=== PATIENT | male | born 1950 | race Caucasian/White ===

== ENCOUNTER 2024-05-01 12:43 | Observation (INO) ==
--- NOTE | 2024-03-28 13:45 | PAT Medication Instructions ---
Medication Instructions Date of Service March 28, 2024 Home Medications Saccharomyces boulardii 250 mg capsule (Florastor) 250 mg PO QAM albuterol sulfate 1.25 mg/3 mL solution for nebulization 1.25 mg inhalation QID PRN sob albuterol sulfate 90 mcg/actuation aerosol inhaler 1 inh inhalation QID PRN sob certolizumab pegol 400 mg/2 mL (200 mg/mL x2) subcutaneous syringe kit (Cimzia) 400 mg subcut Q4WK diltiazem HCl 180 mg capsule,24 hr,extended release 180 mg PO QAM ezetimibe 10 mg tablet 10 mg PO HS famotidine 20 mg tablet 20 mg PO DAILY PRN Heartburn finasteride 5 mg tablet 5 mg PO HS fluticasone fur. 100 mcg-umeclid 62.5 mcg-vilant 25 mcg inhalat.powder (Trelegy Ellipta) 1 inh inhalation QAM folic acid 1 mg tablet 1 mg PO QAM furosemide 20 mg tablet 20 mg PO QAM losartan 50 mg tablet 50 mg PO QAM magnesium 200 mg tablet 400 mg PO QAM methotrexate sodium 25 mg/mL injection solution 20 mg IM WK Rheumatoid Arthritis xsqxfviifeob-mvuqjoob-rbiqtt tablet (Multivitamin 50 Plus tablet) 1 tab PO QAM prednisone 5 mg tablet 5 mg PO QAM rosuvastatin 40 mg tablet 40 mg PO QAM tamsulosin 0.4 mg capsule 0.8 mg PO HS DO NOT take the morning of surgery Saccharomyces boulardii 250 mg capsule (Florastor) 250 mg PO QAM folic acid 1 mg tablet 1 mg PO QAM furosemide 20 mg tablet 20 mg PO QAM losartan 50 mg tablet 50 mg PO QAM magnesium 200 mg tablet 400 mg PO QAM jiuveiwchzfr-ulnbxhpx-psmpek tablet (Multivitamin 50 Plus tablet) 1 tab PO QAM Take morning of surgery With a small sip of water, OTHERWISE NOTHING TO EAT OR DRINK AFTER MIDNIGHT: albuterol sulfate 1.25 mg/3 mL solution for nebulization 1.25 mg inhalation QID PRN sob (if needed) albuterol sulfate 90 mcg/actuation aerosol inhaler 1 inh inhalation QID PRN sob (use if needed; please bring rescue inhaler with you to hospital day of surgery if possible) diltiazem HCl 180 mg capsule,24 hr,extended release 180 mg PO QAM famotidine 20 mg tablet 20 mg PO DAILY PRN Heartburn (if needed) fluticasone fur. 100 mcg-umeclid 62.5 mcg-vilant 25 mcg inhalat.powder (Trelegy Ellipta) 1 inh inhalation QAM prednisone 5 mg tablet 5 mg PO QAM rosuvastatin 40 mg tablet 40 mg PO QAM Take evening before surgery albuterol sulfate 1.25 mg/3 mL solution for nebulization 1.25 mg inhalation QID PRN sob (if needed) albuterol sulfate 90 mcg/actuation aerosol inhaler 1 inh inhalation QID PRN sob (if needed) ezetimibe 10 mg tablet 10 mg PO HS famotidine 20 mg tablet 20 mg PO DAILY PRN Heartburn (if needed) finasteride 5 mg tablet 5 mg PO HS STOP 7 days prior to surgery (if okay with prescriber) methotrexate sodium 25 mg/mL injection solution 20 mg IM WK Other Notes If you have any questions please call us at [phone] or [phone] or [phone] or [phone]
--- NOTE | 2024-04-03 11:35 | Anesthesiology Consultation ---
Date of Service April 03, 2024 Assessment & Plan (1) Encounter for pre-operative examination: - Check BSG DOS - Infectious disease screening: Per assessment on 04/03/24- No known recent infectious disease contacts or current infectious disease symptoms. - Outpatient joint assessment: Pt currently scheduled for inpatient pathway. If surgeon requests review for outpatient joint pathway, patient is not recommended candidate for outpatient joint program from anesthesia standpoint based on available information. - Cardiology visit (01/26/24): "Possible future elective left shoulder surgery.. Able to ambulate 1 flight of stairs without difficulty, developing dyspnea with 2 flights that does not require him to stop..Chronic atrial and ventricular ectopy.. SVT and VT via April 2022 ZIO monitor.. Diastolic heart failure.. Atherosclerotic calcification of the coronary arteries and aorta.. Possible future elective left shoulder replacement surgery.. No overt cardiac contraindications." - Chronic steroid use: Currently taking Prednisone 5mg daily for Rheumatoid arthritis. - Patient acceptable risk for surgery pending surgeon-ordered PCP preop evaluation ([facility]/Dr. Narcisa Sunshine, appt 04/11). Chart Review Chart Review: Patient seen in Pre Admission Testing Teaching & Discussion Pre-Anesthesia Teaching/Discussion Notes: Instructed NPO after midnight before surgery,except medications with 15 cc of water. Medication instructions provided according to the PAT guidelines. History Surgery Operation Date: 05/01/24 09:15 Proposed Procedures p Left Total Shoulder Arthroplasty Reverse - Mauri Gonzalez MD Height/Weight Height: 5 ft 5 in Weight: 82.5 kg Allergies Allergy/AdvReac Type Severity Reaction Status Date / Time adhesive Allergy Intermediate Rash, Verified 03/29/24 14:13 itchiness povidone-iodine Allergy Intermediate Rash, Verified 03/29/24 14:13 itchiness Medications Home Medications Medication Instructions Recorded Confirmed Last Taken Saccharomyces boulardii 250 mg 250 mg PO QAM 08/08/23 03/28/24 09/03/23 capsule (Florastor) albuterol sulfate 1.25 mg/3 mL 1.25 mg inhalation QID PRN sob 08/08/23 03/28/24 09/03/23 solution for nebulization albuterol sulfate 90 mcg/actuation 1 inh inhalation QID PRN sob 08/08/23 03/28/24 09/03/23 aerosol inhaler certolizumab pegol 400 mg/2 mL 400 mg subcut Q4WK 08/08/23 03/28/24 09/03/23 (200 mg/mL x2) subcutaneous syringe kit (Cimzia) diltiazem HCl 180 mg capsule,24 180 mg PO QAM 08/08/23 03/28/24 09/04/23 07:30 hr,extended release ezetimibe 10 mg tablet 10 mg PO HS 08/08/23 03/28/24 09/03/23 famotidine 20 mg tablet 20 mg PO DAILY PRN Heartburn 08/08/23 03/28/24 09/03/23 finasteride 5 mg tablet 5 mg PO HS 08/08/23 03/28/24 09/03/23 fluticasone fur. 100 mcg-umeclid 1 inh inhalation QA 08/08/23 03/28/24 09/04/23 07:30 62.5 mcg-vilant 25 mcg inhalat.powder (Trelegy Ellipta) folic acid 1 mg tablet 1 mg PO QAM 08/08/23 03/28/24 09/03/23 furosemide 20 mg tablet 20 mg PO QAM 08/08/23 03/28/24 09/03/23 losartan 50 mg tablet 50 mg PO QAM 08/08/23 03/28/24 09/04/23 07:30 magnesium 200 mg tablet 400 mg PO QAM 08/08/23 03/28/24 09/03/23 methotrexate sodium 25 mg/mL 20 mg IM WK Rheumatoid Arthritis 08/08/23 03/28/24 09/03/23 injection solution jikoeafvzvlc-odkjqeld-qukpbn 1 tab PO QAM 08/08/23 03/28/24 09/03/23 tablet (Multivitamin 50 Plus tablet) prednisone 5 mg tablet 5 mg PO QAM 08/08/23 03/28/24 09/04/23 07:30 rosuvastatin 40 mg tablet 40 mg PO QAM 08/08/23 03/28/24 09/04/23 07:30 tamsulosin 0.4 mg capsule 0.8 mg PO HS 08/08/23 03/28/24 09/03/23 Past Medical History Medical History Atherosclerosis Atherosclerosis calcification of the coronary arteries and aorta Atrial ectopy BPH (benign prostatic hyperplasia) Chronic back pain Chronic obstructive pulmonary disease Chronic steroid use Degenerative disc disease GERD (gastroesophageal reflux disease) History of SCC (squamous cell carcinoma) of skin s/p Moh's procedure 04/01/24 Hx of supraventricular tachycardia Hx SVT and VT via 04/2022 Zio monitor (per cardio records) Follows with [facility] cardio Hyperlipidemia Hypertension Interstitial lung disease Per [facility] records Obesity Pre-diabetes Rheumatoid arthritis Ventricular ectopy Exercise / Class Metabolic Activity II 4-5 Yardwork/Stairs/Walk up hill (one FS: No CP, no SOB) Past Family History Family History Other No family history of adverse response to anesthesia Past Surgical History Surgical History H/O arthroscopy of shoulder left H/O right cataract extraction H/O umbilical hernia repair History of anesthesia reaction Slow to wake History of carpal tunnel release and ulnar decompression (left) History of colonoscopy History of esophagogastroduodenoscopy (EGD) History of left cataract surgery (08/21/23) History of Mohs micrographic surgery for skin cancer History of tonsillectomy Past Anesthesia History No Family Hx of Anesthesia Complications and Other (Slow to wake) History of PONV No Hx of PONV and No Hx of Motion Sickness Social History Smoking Status: Former smoker Do You Dip or Chew Tobacco: Yes (Daily- Advised none DOS) Smoking End Date: Quit 1997 Hx Alcohol Use: Yes alcohol intake frequency: a few times a week Hx Substance Use: No substance use type: does not use Review of Systems Hx of recent Moh's procedure to scalp 04/01/24- reports healing well as expected/no issues. Patient advised to contact surgeon/PAT if not healed prior to surgery. Patient denies chest pain, shortness of breath, dyspnea on exertion, fever, chills, cough, wheezing, palpitations. Physical Exam Vital Signs BP 110/71 P 95 TEMP 97.9 SP02 95%RA RESP 16 Physical Full cervical extension range of motion. Full TMJ range of motion. TMD > 3.5 finger breaths Mallampati Score II Dentition: full upper plate, lower partial Lungs: course breath sounds Cardiac: regular rate and rhythm, no murmurs noted Spine: normal Carotid arteries: negative bruit Extremities: no LE edema Lab Results Anesthesia Preop Results Results Anesthesia Widget: WBC 8.37 K/ul (4.8-10.8) 04/03/24 Hgb 14.5 g/dl (14.0-18.0) 04/03/24 Hct 43.4 % (42.0-52.0) 04/03/24 Plt 271 K/uL (130-400) 04/03/24 Na 138 mmol/L (136-145) 04/03/24 K 4.5 mmol/L (3.5-5.1) 04/03/24 Cl 103 mmol/L (98-107) 04/03/24 CO2 29 mmol/L (21-32) 04/03/24 BUN 18 mg/dl (6-23) 04/03/24 Creat 0.76 mg/dl (0.6-1.4) 04/03/24 Glucose Level 147 mg/dl (70-99(Fasting)) H 04/03/24 PT 10.3 Seconds (9.0-12.0) 04/03/24 PTT 26 Seconds (21-31) 04/03/24 INR 0.9 (0.9-1.1) 04/03/24 Urine Color Yellow 04/03/24 Urine Appearance Clear (Clear) 04/03/24 Urine pH 6.5 (4.5-7.5) 04/03/24 Urine Specific [place] 1.016 (1.000-1.030) 04/03/24 Urine Protein Negative (Negative) 04/03/24 Urine Glucose (UA) Negative (Negative) 04/03/24 Urine Ketones Negative (Negative) 04/03/24 Urine Blood Negative (Negative) 04/03/24 Urine Nitrite Negative (Negative) 04/03/24 Urine Bilirubin Negative (Negative) 04/03/24 Urine Urobilinogen Negative (Negative) 04/03/24 Urine Leukocyte Esterase Negative (Negative) 04/03/24 Blood Type A Positive 04/03/24 Antibody Screen NEGATIVE 04/03/24 Testing Electrocardiogram Date: 05/19/23 SB with sinus arrhythmia at 56bpm. "Otherwise normal ECG" Chest X-Ray Date: 04/03/24 FINDINGS: No lines and tubes are seen. The cardiomediastinal silhouette is normal. There is atelectasis lung. No evidence of pleural effusion or pneumothorax. IMPRESSION: No acute chest disease. Echocardiogram Date: 07/08/22 LVEF 60 to 64%. Mild MR. Mildly increased concentric LV wall thickness. LV wall motion is normal. Stress Test Date: 07/08/22 Type: nuclear Lexiscan nuclear cardiac stress test negative for ischemia. Gated SPECT images reveal normal myocardial thickening and wall motion. Decreased counts noted in inferior wall that improved with stress with normal gated SPECT suggest attenuation artifact. LVEF 64%. Other Testing C-spine x-ray Date: 04/03/24 FINDINGS: Straightening of the cervical lordosis. C3-C4 and C4-C5 discogenic disease. No acute fracture or malalignment. IMPRESSION: C3-C4 and C4-C5 discogenic disease. No acute fracture or malalignment. No change in alignment on flexion or extension views.
--- NOTE | 2024-04-29 17:01 | History & Physical Report ---
Date of Service April 29, 2024 Assessment & Plan (1) Osteoarthritis of left glenohumeral joint: Plan: Chronic left shoulder pain end-stage glenohumeral osteoarthritis with failed rotator cuff repair with recurrent rotator cuff tear. Plan is to proceed with reverse total shoulder arthroplasty. (2) Rotator cuff tear, left: Rotator cuff tear extent: complete Rotator cuff tear trauma status: nontraumatic Qualified Code(s): M75.122 - Complete rotator cuff tear or rupture of left shoulder, not specified as traumatic History of Present Illness Chief Complaint: Left shoulder pain and weakness Primary Care Provider: ALBA Monsalve 73-year-old male with chronic left shoulder pain. History of prior shoulder arthroscopy. Patient has chronic pain and weakness. Patient denies headaches, sweats, fevers, chills, double vision, blurred vision, sore throat, chest pain, sob at rest but still with activity, n/v/d/c, numbness, tingling, fatigue, urinary symptoms, mood disorders. ROS positive for heart palpitations chronic cough low back pain enlarged prostate. Allergies Allergy/AdvReac Type Severity Reaction Status Date / Time adhesive Allergy Intermediate Rash, Verified 03/29/24 14:13 itchiness povidone-iodine Allergy Intermediate Rash, Verified 03/29/24 14:13 itchiness Home Medications Medication Instructions Recorded Confirmed Type Saccharomyces boulardii 250 mg 250 mg PO QAM 08/08/23 03/28/24 History capsule (Florastor) albuterol sulfate 1.25 mg/3 mL 1.25 mg inhalation QID PRN sob 08/08/23 03/28/24 History solution for nebulization albuterol sulfate 90 mcg/actuation 1 inh inhalation QID PRN sob 08/08/23 03/28/24 History aerosol inhaler certolizumab pegol 400 mg/2 mL 400 mg subcut Q4WK 08/08/23 03/28/24 History (200 mg/mL x2) subcutaneous syringe kit (Cimzia) diltiazem HCl 180 mg capsule,24 180 mg PO QAM 08/08/23 03/28/24 History hr,extended release ezetimibe 10 mg tablet 10 mg PO HS 08/08/23 03/28/24 History famotidine 20 mg tablet 20 mg PO DAILY PRN Heartburn 08/08/23 03/28/24 History finasteride 5 mg tablet 5 mg PO HS 08/08/23 03/28/24 History fluticasone fur. 100 mcg-umeclid 1 inh inhalation QA 08/08/23 03/28/24 History 62.5 mcg-vilant 25 mcg inhalat.powder (Trelegy Ellipta) folic acid 1 mg tablet 1 mg PO QAM 08/08/23 03/28/24 History furosemide 20 mg tablet 20 mg PO QAM 08/08/23 03/28/24 History losartan 50 mg tablet 50 mg PO QAM 08/08/23 03/28/24 History magnesium 200 mg tablet 400 mg PO QAM 08/08/23 03/28/24 History methotrexate sodium 25 mg/mL 20 mg IM WK Rheumatoid Arthritis 08/08/23 03/28/24 History injection solution yibmhnguvnen-eogvotzw-otgzst 1 tab PO QAM 08/08/23 03/28/24 History tablet (Multivitamin 50 Plus tablet) prednisone 5 mg tablet 5 mg PO QAM 08/08/23 03/28/24 History rosuvastatin 40 mg tablet 40 mg PO QAM 08/08/23 03/28/24 History tamsulosin 0.4 mg capsule 0.8 mg PO HS 08/08/23 03/28/24 History Past Med/Surg History Problem List (Updated 04/29/24 @ 17:00 by Mauri Gonzalez MD) Rotator cuff tear, left Osteoarthritis of left glenohumeral joint Encounter for pre-operative examination Medical History History of SCC (squamous cell carcinoma) of skin s/p Moh's procedure 04/01/24 Interstitial lung disease Per [facility] records Atherosclerosis Atherosclerosis calcification of the coronary arteries and aorta Hx of supraventricular tachycardia Hx SVT and VT via 04/2022 Zio monitor (per cardio records) Follows with [facility] Ventricular ectopy Atrial ectopy Obesity Pre-diabetes Chronic steroid use Chronic back pain Degenerative disc disease Rheumatoid arthritis BPH (benign prostatic hyperplasia) GERD (gastroesophageal reflux disease) Hyperlipidemia Hypertension Chronic obstructive pulmonary disease Surgical History History of Mohs micrographic surgery for skin cancer H/O right cataract extraction History of anesthesia reaction Slow to wake History of left cataract surgery (08/21/23) History of carpal tunnel release and ulnar decompression (left) History of esophagogastroduodenoscopy (EGD) History of colonoscopy H/O umbilical hernia repair History of tonsillectomy H/O arthroscopy of shoulder left Family History Other No family history of adverse response to anesthesia Social History Smoking Status: Former smoker Tobacco Type: Cigarettes and Smokeless Tobacco (Dip or Chew) Smoking End Date: Quit 1997; Second Hand Exposure: No; Do You Dip or Chew Tobacco: Yes (Daily- Advised none DOS); Tobacco Cessation Education Requested by Patient: No Hx Alcohol Use: Yes Hx Substance Use: No Preferred Language: Thai Communication Ability: Effective Dental Scheduler Required: No Beliefs That Will Affect Care: None Current Living Situation: Spouse Other Information That Helps Us Care for You: No Feels Safe at Home: Yes Safety Concerns: Feels Safe At This Time Assistive Devices: Denture - Upper and Glasses Review of Systems All systems reviewed & are unremarkable except as noted in HPI & below Physical Exam Constitutional: WD/WN, vitals as above Respiratory: normal respiratory effort; no respiratory distress Bilateral lung rhonchi Cardiovascular: Rate/Rhythm: regular rate and regular rhythm Musculoskeletal: Left shoulder exam with old surgical scars, abnormal rhythm, crepitation with range of motion, painful passive and active motion, 170 degrees flexion and abduction, 3+5 external rotation and abduction strength with 5+5 internal rotation strength. Neurovascular exam intact. Skin: no rashes, warm and dry Neurologic: normal touch/pain/proprioception Psychiatric: A+Ox3, euthymic affect Results & Data Diagnostic Findings Imaging demonstrates complete nwho-[id number]-asto glenohumeral joint with full- thickness tears of the supraspinatus and infraspinatus tendons with retraction and atrophy with tendinopathy subscapularis with tendinopathy biceps with ruptured biceps and atrophy of teres minor as well.
[~2024-05-01 12:43] MED LIST: BUPIVACAINE 0.5 % 5 MG/1 ML PF 10ML VIAL ONE
--- NOTE | 2024-05-01 13:02 | History & Physical Bridge Note ---
Date of Service May 01, 2024 History & Physical Bridge Note I have examined the patient, reviewed the History & Physical and in the interval since the performance of the History & Physical I have noted the following changes of clinical significance: no changes noted
[2024-05-01] MEDS: CeleBREX 200 MG CAP PO SCH (13:27)
[2024-05-01] MEDS: ACETAMINOPHEN 500 MG TAB PO SCH ×2 (13:27→20:25)
[2024-05-01] MEDS: FAMOTIDINE 20 MG TAB PO SCH (13:28)
[2024-05-01] MEDS: METOCLOPRAMIDE HCL 10 MG TABLET PO SCH (13:28)
[2024-05-01] MEDS: dexAMETHasone**PF** 10 MG/ML VIAL IV SCH (13:29)
[2024-05-01] MEDS: LACTATED RINGER'S 1,000 ML IV SCH (13:29)
[2024-05-01] MEDS: LR 60ML/HR IV SCH (13:29)
[2024-05-01] MEDS: GABAPENTIN 300 MG CAP PO SCH (13:31)
[2024-05-01] MEDS ORDERED: ePHEDrine sulfate 50 MG/ML AMP IV PRN (13:51)
[2024-05-01] MEDS ORDERED: ATROPINE SULFATE 0.1 MG/ML 10ML SYR IV PRN (13:51)
[2024-05-01] MEDS ORDERED: ONDANSETRON INJ 2 MG/ML 2 ML VIAL IV PRN ×2 (13:51→18:05)
[2024-05-01] MEDS ORDERED: PROMETHAZINE HCL 6.25 MG in SODIUM CHLORIDE 0.9% 50 ML IV PRN (13:51)
[2024-05-01] MEDS ORDERED: fentaNYL citrate PF 100 MCG/2 ML VIAL IV PRN (13:51)
[2024-05-01] MEDS ORDERED: HYDROmorphone INJ 1 MG/ML SYRINGE IV PRN (13:51)
[2024-05-01] MEDS ORDERED: NALOXONE HCL 0.4 MG/1 ML VIAL/CARP IV PRN ×2 (13:51→18:05)
[2024-05-01] MEDS ORDERED: FLUMAZENIL 0.1 MG/1 ML 10 ML VIAL IV PRN (13:51)
[2024-05-01] MEDS: ALBUTEROL 0.083% NEBU SOLN 3 ML VIAL NEB STA (14:00)
[2024-05-01] MEDS: ALBUTEROL 0.083% NEBU SOLN 3 ML VIAL ONE (14:00)
[2024-05-01] MEDS ORDERED: PROPOFOL IV EMULSION 10 MG/ML 20 ML VIAL IV ONE (14:27)
[2024-05-01] MEDS ORDERED: ONDANSETRON INJ 2 MG/ML 2 ML VIAL ONE (14:27)
[2024-05-01] MEDS ORDERED: LIDOCAINE 2% 2 ML VIAL/AMP(20MG/ML) INFIL ONE (14:27)
[2024-05-01] MEDS ORDERED: ROCURONIUM BROMIDE 10 MG/ML 5 ML VIAL IV ONE ×2 (14:27→15:35)
[2024-05-01] MEDS ORDERED: MIDAZOLAM HCL 1 MG/ML 2ML VIAL ONE (14:27)
[2024-05-01] MEDS ORDERED: fentaNYL citrate PF 100 MCG/2 ML VIAL ONE ×2 (14:27→16:52)
[2024-05-01] MEDS: TRANEXAMIC ACID 1,000 MG **IV Pre-op IV SCH (14:33)
[2024-05-01] MEDS: ceFAZolin 2000MG 2,000 MG/15 ML SYR IV SCH ×2 (14:57→22:43)
[2024-05-01] MEDS: TRANEXAMIC ACID 1,000 MG **IV Intra-op IV SCH (16:45)
[2024-05-01] MEDS ORDERED: SUGAMMADEX SODIUM 200 MG/2 ML VIAL IV ONE (16:50)
--- NOTE | 2024-05-01 17:13 | Operative Report ---
Post Operative Report Pre & Post Diagnosis Operation Date: 05/01/24 15:00 Pre-Op Diagnosis: 1. Osteoarthritis of left glenohumeral joint, 2. Left chronic rotator cuff tear with rotator cuff arthropathy 3. Proximal biceps rupture Post-Op Diagnosis: 1. Osteoarthritis of left glenohumeral joint, 2. Left Rotator cuff tear with rotator cuff arthropathy 3. Proximal biceps rupture I identified the patient and participated in the time-out.: Yes Procedure Operation Date: 05/01/24 15:00 Actual Procedures p Left Reverse Total Shoulder Arthroplasty(Left) - Mauri Gonzalez MD Surgeon Mauri Gonzalez MD [employer] Supervisor Issa BOOKER Estimated Blood Loss 100 Findings Consistent with Post-Op Diagnosis Specimens Humeral head Drains 2 Hemovac Anesthesia Type General Regional Complications none Disposition Disposition: Recovery Room Indications 73 male chronic left shoulder pain with end-stage glenohumeral osteoarthritis [id number] with grade 4 [place] rotator cuff arthropathy with a chronic rotator cuff tear Description of Procedure The patient was taken to the operating room and anesthetized under regional block and general anesthetic. The patient was positioned on the operating table in a 30 beach chair position with a towel roll under the medial border of the left scapula. The arm was draped free to be able to manipulate the shoulder as needed. The left upper extremity was prepped and draped in usual sterile fashion. Exam demonstrated 150 degrees forward flexion 100 degrees abduction and 40 degrees external rotation. An anterior deltopectoral approach was performed. A longitudinal incision was made in the deltopectoral interval. The skin was incised sharply. Subcutaneous flaps were elevated off the fascia. The cephalic vein was diminutive and dissected out and retracted medial with pectoralis. The clavipectoral fascia was divided at the lateral margin of the conjoined tendon and extended up to the CA ligament. The following findings were noted: The biceps tendon was ruptured proximally and scarred in bicipital groove. The subscapularis was intact. The anterior rotator interval and anterior supraspinatus tendon was intact but the infraspinatus had a chronic retracted tear and the teres minor was still intact. Humeral head was grade 4 exposed bone. The upper centimeter of the pectoralis was released for inferior exposure. A self-retaining retractor was placed. The biceps tendon was maintained in the groove and dissection performed adjacent to it. The subscapular muscle fibers were split longitudinally at the level of the circumflex vessels. The circumflex vessels were identified and tied off with silk ties and divided laterally. A Kitner elevator was used to free up the inferior fibers of the subscapularis off of the capsule. The axillary nerve was identified with a tug test and protected with a blunt Omer retractor between the nerve and the capsule. The subscapularis tendon was then taken down off of the lesser tuberosity subperiosteally, a Vicryl traction suture was placed and a subperiosteal dissection was performed along the neck of the humerus as the arm was gradually externally rotated exposing the humeral head. I did release the remnants of the supraspinatus back to meet the infraspinatus tendon tear and resected some of the supraspinatus tissue with tendinopathy superiorly. The humeral head findings demonstrated eburnated bone on the good portion of the humeral head and inferior osteophytes from anterior to posterior. retractors were readjusted and the inferior osteophytes were all resected using an artist chisel and rongeur. A Oates elevator was used to assist in releasing the capsule of the neck of the humerus. The capsule was divided with Gray scissors down to the glenoid released off the anterior glenoid and the rotator interval was released to meet the capsular release and a 360 release of the subscapularis was accomplished. A Fukuda retractor was placed into the joint retracting the humeral head posterior. Glenoid findings demonstrated only a small crescent of cartilage remaining on the anteriormost aspect of the glenoid with eburnated bone with mostly concentric type wear pattern. The labrum and biceps tendon was resected. an anterior-inferior and posterior inferior capsular release were performed with electrocautery and a Oates elevator on bone with the axillary nerve protected inferiorly by the retractor. Attention was then taken to the humeral preparation. The cutting guide was placed into the humeral head. It was positioned at 20 of retroversion. Oscillating saw was used to resect the humeral head giving the cut above the level of the posterior rotator cuff insertion site. The humerus was then prepared for the stem. I used the ascend flex stem from [employer]. The sizing broaches were used followed by trial broaches up to a size 5B Long which had the appropriate fit and fill. The appropriate sized cut protector was placed. The humerus was then retracted posterior to the glenoid. The glenoid was sized for a 29 baseplate. The guide for the baseplate was positioned in a 10 inferior tilt and the central drill hole was made. The reamer for the 29 baseplate was used. The central drill was widened for the peg. The aequalis hydroxyapatite coated standard post baseplate was impacted into position. Before fully seating the implant I did place him a cancellous bone from the humeral head underneath the implant to enhance contact with the glenoid. The base plate was transfixed with superior and inferior locking screws and anterior and posterior compression screws with stable fixation. The fan reamer was used for the 42 millimeter glenoid sphere. After irrigation the 42 mm centered glenoid sphere was impacted onto the baseplate and the security screw was tightened. Attention was taken back to the humerus. The cut protector was removed and the +0 high offset humeral tray trial was ass embled to the trial stem rotated appropriately to get bony coverage and then screwed in position. A trial reduction was performed. A +6/ 42 reversed trial insert demonstrated good stability and no shuck. The trials were removed. 3 drill holes are made into the harder bone in the bicipital groove area and 3 #5 FiberWire sutures were placed transosseously. The canal was irrigated with antibiotic solution with bacitracin. The final component was assembled. The final component was ascend flex stem assemble 2+0 high offset tray with a +6/42 mm reversed polyethylene insert. This was then impacted into the humerus with a tight press-fit. It was reduced to the glenoid sphere. Stability was verified. Subscapularis was repaired with the #5 FiberWire sutures using Thomas-Blu suture technique. Lateral row soft tissue repair was performed with #2 FiberWire [id number] sutures. The pectoralis was repaired with #2 FiberWire [id number]-[id number]-clexd sutures . The arm was taken through a range of motion which demonstrated 150 degrees forward flexion 100 degrees abduction 70 degrees external rotation. The implant was stable through the range of motion tested. The wound was copiously irrigated. Xperience irrigation was used. 2 Hemovac drains were placed. The deltopectoral interval was closed with [id number]-kn-[id number] #1 Vicryl sutures. The subcutaneous tissues were closed with 2-0 Vicryl sutures. The skin was closed with surgical tiffany. Sterile dressings were applied and a shoulder immobilizer. JHONY Avila, my physician administrative personal assistant acted as therapy assistant throughout the procedure .He performed functions including patient positioning, arm positioning, prepping and draping, soft tissue retraction, instrument management, suture management and performed the subcutaneous and skin closure and will participate in the postoperative care of the patient. I attest to the content of the Intraoperative Record and any orders documented therein. Any exceptions are noted below.
--- NOTE | 2024-05-01 17:47 | XRay Report ---
EXAM: Radiographs of the Left Shoulder Complete 2 Views INDICATION: Arthroplasty. TECHNIQUE: 2 views of the left shoulder. COMPARISON: No relevant prior studies available. FINDINGS: Bones/joints: Reverse shoulder arthroplasty components well-seated and intact. No fracture or dislocation. Soft tissues: There is expected postoperative swelling in the operative bed. There are 2 surgical drains projecting over the shoulder. Lungs and pleural spaces: There is mild atelectasis in the lung bases. IMPRESSION: 1. Satisfactory appearance of left shoulder arthroplasty. 2. There is mild atelectasis in the lung bases. ACT 112: Negative or not required by law. Electronically signed by Cheri Leyva 05-01-2024 5:47 PM
--- NOTE | 2024-05-01 17:56 | Anesthesiology Progress Note ---
Date of Service May 01, 2024 Anesthesia Post Procedure Vital Signs Vital Signs: Temp Pulse Pulse Resp BP Pulse Ox O2 Del Method 05/01/24 17:50 75 16 116/69 94 Nasal Cannula 05/01/24 17:40 75 15 109/65 94 Oxymask 05/01/24 17:30 76 17 110/69 92 Oxymask 05/01/24 17:22 36.4 C L 75 17 136/75 92 Oxymask 05/01/24 14:00 67 18 93 Room Air 05/01/24 13:22 Room Air 05/01/24 13:10 36.8 C 74 20 138/73 94 Room Air O2 Flow Rate 05/01/24 17:50 4 05/01/24 17:40 5 05/01/24 17:30 10 05/01/24 17:22 10 05/01/24 14:00 05/01/24 13:22 05/01/24 13:10 Transfer of Care Handoff Completed per policy Notes Mental Status: alert / awake / arousable Patient Amnestic to Procedure: Yes Nausea / Vomiting: adequately controlled Pain: adequately controlled Airway Patency, RR, SpO2: stable & adequate BP & HR: stable & adequate Hydration State: stable & adequate Anesthetic Complications: no major complications apparent and Pt Satisfied with anesthetic care
[2024-05-01] MEDS ORDERED: MAGNESIUM HYDROXIDE SUSP 30 ML UDC PO PRN (18:05)
[2024-05-01] MEDS ORDERED: ALUMINUM/MAGNESIUM SUSP 30 ML UDC PO PRN (18:05)
[2024-05-01] MEDS ORDERED: ALBUTEROL HFA 8 GM INHALER INH PRN (18:05)
[2024-05-01] MEDS ORDERED: ALBUTEROL 0.5% NEB SOLN 2.5 MG/0.5 ML VIAL INH PRN (18:05)
[2024-05-01] MEDS ORDERED: metHOTREXate sodium 50 MG/2 ML MDV VIAL IM SCH (18:05)
[2024-05-01] MEDS ORDERED: bisacodyL 10 MG SUPP PR PRN (18:05)
[2024-05-01] MEDS ORDERED: KETOROLAC TROMETHAMINE 15 MG/ML VIAL IV PRN (18:05)
[2024-05-01] MEDS ORDERED: HYDROmorphone INJ 0.5 MG/0.5 ML SYR IV PRN (18:05)
[2024-05-01] MEDS ORDERED: METOCLOPRAMIDE HCL INJ 5 MG/ML 2 ML VIAL IV PRN (18:05)
[2024-05-01] MEDS ORDERED: diphenhydrAMINE Capsule 25 MG CAP PO PRN (18:05)
[2024-05-01] MEDS ORDERED: oxyCODONE HCL IR 5 MG TAB (IMMEDIATE RELEASE) PO PRN (18:05)
[2024-05-01] MEDS ORDERED: FAMOTIDINE 20 MG TAB PO PRN (18:05)
[2024-05-01] MEDS: ORTHO JOINT ANESTHETIC ONE (18:06)
--- NOTE | 2024-05-01 18:54 | Hospitalist Consultation ---
Date of Consultation May 01, 2024 Assessment & Plan (1) Rotator cuff tear, left: - Post-op day 0 left reverse total shoulder - Pain management per primary team: Tylenol 1000mg q8, Dilaudid 0.5mg q4 prn, Toradol 15mg q6 prn, oxycodone 5mg q4 prn - Benadryl prn for itching held -> delirium risk - Asp 81mg BID per primary team (2) Chronic obstructive pulmonary disease: - follows with pulm - currently on 3L NC, has been able to wean down from 10L Oxymax this post-op - some wheezing in exam, will add scheduled DuoNebs and would plan to transition to prn once able to wean oxygen requirement - if trouble weaning O2 requirement consider CXR - continue home inhalers-> albuterol prn, Trelegy (3) Hypertension: - blood pressures 100s/70s -> held home losartan- due qAM, would restart in the morning if blood pressure can tolerate (4) Hyperlipidemia: - continue Zetia, statin (5) GERD (gastroesophageal reflux disease): - continue pepcid (6) BPH (benign prostatic hyperplasia): - continue finasteride, tamsulosin (7) Rheumatoid arthritis: - continue with home medications-> methotrexate, prednisone - on Cimzia- did not take in April prior to surgery - continue with home celebrex (8) Atrial ectopy: - continue cardizem (9) (HFpEF) heart failure with preserved ejection fraction: - continue home lasix Supervising Physician Co-Signing Physician Notes Patient seen and examined, chart reviewed, case discussed with Samira Isaacs, and I agree with the assessment and plan as above except as otherwise noted above. All labs and images reviewed Doing well at bedside. Eating dinner. Nerve block of Left arm has not yet worn off, fingers still feel numb. Boxing Promoter strength 5/5. Cap refill brisk. Drain with serosanguinous output. No concerns from pt at bedside. +wheezing. Agree w/ duonebs and trend. If persistent hypoxia in AM obtain CXR w/ risk of phrenic nerve involvement from block, suspect mostly from COPD. Agree w/ management as above. History of Present Illness Attending Physician: Mauri Gonzalez MD History of Present Illness 73 year male with a past medical history of COPD, HFpEF, RA on chronic steroids, Chronic atrial and ventricular ectopy, GERD, HLD, BPH that is post-op day 0 left reverse total shoulder arthroplasty. Seen post-op at request of surgeon for medical management. was at bedside. Noted to be on 3L NC, denies dyspnea/chest pain. Notes history of COPD, but denies recent exacerbation. Denies URI symptoms- cough, congestion prior to surgery. Pain is well controlled at present. No acute complaints. Allergies Allergy/AdvReac Type Severity Reaction Status Date / Time adhesive Allergy Intermediate Rash, Verified 05/01/24 13:06 itchiness povidone-iodine Allergy Intermediate Rash, Verified 05/01/24 13:06 itchiness Home Medications Medication Instructions Recorded Confirmed Type Saccharomyces boulardii 250 mg 250 mg PO QAM 08/08/23 05/01/24 History capsule (Florastor) albuterol sulfate 1.25 mg/3 mL 1.25 mg inhalation QID PRN sob 08/08/23 05/01/24 History solution for nebulization albuterol sulfate 90 mcg/actuation 1 inh inhalation QID PRN sob 08/08/23 05/01/24 History aerosol inhaler certolizumab pegol 400 mg/2 mL 400 mg subcut Q4WK 08/08/23 05/01/24 History (200 mg/mL x2) subcutaneous syringe kit (Cimzia) diltiazem HCl 180 mg capsule,24 180 mg PO QAM 08/08/23 05/01/24 History hr,extended release ezetimibe 10 mg tablet 10 mg PO HS 08/08/23 05/01/24 History famotidine 20 mg tablet 20 mg PO DAILY PRN Heartburn 08/08/23 05/01/24 History finasteride 5 mg tablet 5 mg PO HS 08/08/23 05/01/24 History fluticasone fur. 100 mcg-umeclid 1 inh inhalation QAM 08/08/23 05/01/24 History 62.5 mcg-vilant 25 mcg inhalat.powder (Trelegy Ellipta) folic acid 1 mg tablet 1 mg PO QAM 08/08/23 05/01/24 History furosemide 20 mg tablet 20 mg PO QAM 08/08/23 05/01/24 History losartan 50 mg tablet 50 mg PO QAM 08/08/23 05/01/24 History magnesium 200 mg tablet 400 mg PO QAM 08/08/23 05/01/24 History methotrexate sodium 25 mg/mL 20 mg IM WK Rheumatoid Arthritis 08/08/23 05/01/24 History injection solution ewrjhrrajaqo-qtkhzmoo-apxxho 1 tab PO QAM 08/08/23 05/01/24 History tablet (Multivitamin 50 Plus tablet) prednisone 5 mg tablet 5 mg PO QAM 08/08/23 05/01/24 History rosuvastatin 40 mg tablet 40 mg PO QAM 08/08/23 05/01/24 History tamsulosin 0.4 mg capsule 0.8 mg PO HS 08/08/23 05/01/24 History acetaminophen 500 mg tablet 1,000 mg (2 x 500 mg) PO Q8H #90 05/01/24 Rx (Tylenol Extra Strength) tabs aspirin 81 mg tablet,delayed 81 mg PO BID #60 tabs 05/01/24 Rx release cefadroxil 500 mg capsule 500 mg PO Q12H #28 caps 05/01/24 Rx celecoxib 200 mg capsule (Celebrex) 200 mg PO Q12H #60 caps 05/01/24 Rx oxycodone 5 mg tablet 5 mg PO Q4H PRN pain #20 tabs 05/01/24 Rx Patient History Medical History History of SCC (squamous cell carcinoma) of skin s/p Moh's procedure 04/01/24 Interstitial lung disease Per S records Atherosclerosis Atherosclerosis calcification of the coronary arteries and aorta Hx of supraventricular tachycardia Hx SVT and VT via 04/2022 Zio monitor (per cardio records) Follows with [facility] cardio Ventricular ectopy Atrial ectopy Obesity Pre-diabetes Chronic steroid use Chronic back pain Degenerative disc disease Rheumatoid arthritis BPH (benign prostatic hyperplasia) GERD (gastroesophageal reflux disease) Hyperlipidemia Hypertension Chronic obstructive pulmonary disease Surgical History History of Mohs micrographic surgery for skin cancer H/O right cataract extraction History of anesthesia reaction Slow to wake History of left cataract surgery (08/21/23) History of carpal tunnel release and ulnar decompression (left) History of esophagogastroduodenoscopy (EGD) History of colonoscopy H/O umbilical hernia repair History of tonsillectomy H/O arthroscopy of shoulder left Family History Other No family history of adverse response to anesthesia Social History Smoking Status: Former smoker Tobacco Type: Cigarettes and Smokeless Tobacco (Dip or Chew) Smoking End Date: Quit 1997; Second Hand Exposure: No; Do You Dip or Chew Tobacco: Yes (Daily- Advised none DOS); Tobacco Cessation Education Requested by Patient: No Hx Alcohol Use: Yes Hx Substance Use: No Preferred Language: Korean Communication Ability: Effective Television Maintenance Man Required: No Beliefs That Will Affect Care: None Current Living Situation: Spouse Other Information That Helps Us Care for You: No Feels Safe at Home: Yes Safety Concerns: Feels Safe At This Time Assistive Devices: Denture - Upper and Glasses Review of Systems Review of Systems: As per above Physical Exam Physical Exam: Constitutional: well-appearing, no acute distress HEENT: NCAT, no conjunctival injection CV: regular rhythm, no murmur appreciated, extremities well-perfused, no LE edema Resp: +wheezing throughout, no rales/rhonchi appreciated, no increased work of breathing GI: soft, nondistended, nontender MSK: no gross deformities appreciated, left arm immobilized in sling Skin: warm, dry, no rash appreciated Neuro: alert, oriented, no focal neurologic deficit appreciated Results & Data Results & Data Vital Signs (Past 12 Hours) Vital Signs Temp Pulse Pulse Resp BP Pulse Ox O2 Del Method 05/01/24 18:31 Nasal Cannula 05/01/24 18:12 36.7 C 81 18 104/74 94 Nasal Cannula 05/01/24 17:50 75 16 116/69 94 Nasal Cannula 05/01/24 17:40 75 15 109/65 94 Oxymask 05/01/24 17:30 76 17 110/69 92 Oxymask 05/01/24 17:22 36.4 C L 75 17 136/75 92 Oxymask 05/01/24 14:00 67 18 93 Room Air 05/01/24 13:22 Room Air 05/01/24 13:10 36.8 C 74 20 138/73 94 Room Air O2 Flow Rate 05/01/24 18:31 4 05/01/24 18:12 4 05/01/24 17:50 4 05/01/24 17:40 5 05/01/24 17:30 10 05/01/24 17:22 10 05/01/24 14:00 05/01/24 13:22 05/01/24 13:10 Resident Activity Tracking Resident Involvement: Resident Care Provided Care Provided: Adult [facility] Medicine (1) Rotator cuff tear, left Rotator cuff tear extent: complete Rotator cuff tear trauma status: nontraumatic Qualified Code(s): M75.122 - Complete rotator cuff tear or rupture of left shoulder, not specified as traumatic
--- NOTE | 2024-05-01 19:26 | Billing Data ---
Date of Service May 01, 2024 Coding Level of Care Code 57425 IN/OBS CONSULT LVL 4,60M
[2024-05-01] MEDS: ALBUT/IPRATROP 3MG/0.5MG NEB 3 ML VIAL NEB STA (19:57)
--- OUTSIDE RECORDS SUMMARY | 2024-05-01 20:20 | External Medical Summary | Summary of Care ---
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 Role Phone Trip Bennett Primary Care Provider [phone] Reason for Visit * Reason Comments Mohs Surgery Pt presents today fo r Mohs surgery on R vertex scalp Encounter Details Date Type Department Care Team (Late st Contact Info) Description 04/01/2024 7:45 AM EST Office Visit [facility] [address] [place] [address] Mary Jo Quezada MD [address] [place] [id number] Squamous cell carcinoma of scalp*; Basal cell carcinoma (BCC) of parietal region of scalp; Actinic keratosis Allergies Active Allergy Reactions Criticality Noted Date Comments Adhesive Tape Rash 03/04/2016 Povidone Iodine 03/02/2012 rash Latex Other (Please comment) Medium 08/26/2016 Skin irritation documented as of this encounter (statuses as of 04/11/2024) Medications certolizumab pegol (CIMZIA) 2 X 200 MG KIT 400 mg subcutaneously every 4 weeks, PFS 1 Kit 5 10/16/19 15 Active Insulin Syringe/Needle (B-D INSULIN SYRINGE) 28G X 1/2" 1 ML MISC To use with injectable methotrexate 1 Box 3 12/06/19 15 Active Magnesium Oxide 400 MG Tablet TAKE ONE TABLET BY MOUTH ONCE DAILY 30 Tab 5 01/07/20 15 Active Respiratory Therapy Supplies (FULL KIT NEBULIZER SET) MISCIndications: COPD, moderate (HCC),COPD exacerbation (HCC),Bronchitis , complicated,Whee zing,Shortness of breath,Complicat ed bronchitis Use as directed 1 Each 04/30/19 17 Active One-A-Day Mens Oral Tablet Take 1 Tablet by mouth in the morning. Active Folic Acid 1 MG Oral TabletIndication s:Rheumatoid arthritis involving multiple sites with positive rheumatoid factor (HCC) Take 1 Tablet by mouth in the morning. 90 Tablet 4 02/28/20 23 Active Rosuvastatin Calcium 40 MG Oral Tablet (Crestor)Indicat ions:Dyslipidemi a, goal LDL below 70 Take 1 Tablet by mouth in the morning. 90 Tablet 3 04/28/19 24 Active Probiotic & Acidophilus Ex St Oral Capsule Take 1 Capsule by mouth in the morning and 1 Capsule at noon and 1 Capsule in the evening. Take with meals. Takes one in am only . Active Meclizine HCl 25 MG Oral Tablet (Antivert)Indica tions:Spell of dizziness Take 1 Tablet by mouth 3 times a day as needed for Dizziness. 30 Tablet 1 04/28/19 24 Active Albuterol Sulfate (2.5 MG/3ML) 0.083% Inhalation Nebulization Solution (Proventil)Indic ations:COPD exacerbation (HCC) USE 1 VIAL IN NEBULIZER EVERY 4 HOURS NEEDED FOR WHEEZING 75 mL 1 09/20/19 24 Active Furosemide 20 MG Oral Tablet (Lasix) Take 1 Tablet by mouth in the morning. 31 Tablet 5 10/02/19 24 Active Famotidine 20 MG Oral Tablet (Pepcid)Indicati ons:Gastroesopha geal reflux disease without esophagitis Take 1 Tablet by mouth at bedtime as needed for Heartburn. 34 Tablet 5 10/27/19 24 Active Additional Information Patient not taking.Reported on 01/26/2024 predniSONE 5 MG Oral Tablet (Deltasone)Indic ations:Rheumatoi d arthritis (HCC) Take 1 Tablet by mouth in the morning. 90 Tablet 3 12/04/19 24 Active Albuterol Sulfate HFA 108 (90 Base) MCG/ACT Inhalation Aerosol SolutionIndicati ons:COPD, moderate (HCC) Inhale 2 Puffs by mouth every 4 hours as needed for Cough or Wheezing. 18 g 1 12/04/19 24 Active Sildenafil Citrate 20 MG Oral Tablet (Revatio)Indicat ions:Erectile dysfunction, unspecified erectile dysfunction type TAKE 4 TABLETS BY MOUTH NEEDED 1 HOUR PRIOR TO SEXUAL ACTIVITY 30 Tablet 5 12/07/19 24 Active Finasteride 5 MG Oral Tablet (Proscar) Take 1 Tablet by mouth in the morning. 90 Tablet 1 01/02/20 24 Active Tamsulosin HCl 0.4 MG Oral Capsule (Flomax)Indicati ons:BPH with obstruction/lowe r urinary tract symptoms Take 1 Capsule by mouth in the morning and 1 Capsule before bedtime. TAKE 1 CAPSULE, BY MOUTH, TWO TIMES A DAY. Strength: 0.4 mg. 180 Capsule 4 01/05/20 24 Active Additional Information Patient taking differently: 0.8 mgOralDaily(AM), TAKE 1 CAPSULE, BY MOUTH, TWO TIMES A DAY.Strength: 0.4 mg, Reported on 01/26/2024 Ezetimibe 10 MG Oral Tablet (Zetia)Indicatio ns:Dyslipidemia, goal LDL below 70 Take 1 Tablet by mouth daily. 90 Tablet 3 01/26/20 24 Active Methotrexate Sodium 50 MG/2ML Injection Solution Inject 0.8ml (20mg) under the skin once a week 10 mL 5 02/07/20 24 Active Fluticasone Propionate 50 MCG/ACT Nasal Suspension (Flonase) Administer 2 Sprays into each nostril in the morning. 18.2 mL 3 02/19/20 24 Active Trelegy Ellipta 100-62.5-25 MCG/ACT Aerosol Powder Breath Activated (Fluticasone-Ume clidinium-Vilant darek) Inhale 1 Puff by mouth in the morning. 60 Blister Dosing Unit 10 02/19/20 24 Active Losartan Potassium 50 MG Oral Tablet (Cozaar)Indicati ons:HTN, goal below 140/90 Take 1 Tablet by mouth in the morning. 90 Tablet 3 03/05/20 24 Active dilTIAZem HCl ER Coated Beads 180 MG Oral Capsule Extended Release 24 Hour (Cardizem CD)Indications:P aroxysmal VT (HCC) Take 1 Capsule by mouth in the morning. 90 Capsule 3 03/05/20 24 Active Hospital, Clinic, or Other Facility Administered Medication Ordered Dose Route Frequency Start Date End Date Status certolizumab pegol (CIMZIA) inj 200 mgIndications: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 factor (HCC) 200 mg SC [id number] 10/24/2017 Active certolizumab pegol (CIMZIA) inj 200 mgIndications: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 factor (HCC) 200 mg SC [id number] 10/24/2017 Active Albuterol Sulfate (Proventil) (5 MG/ML) 0.5% *conc* inhalation solution 2.5 mgIndications:COPD (chronic obstructive pulmonary disease) with chronic bronchitis (HCC) 2.5 mg NEBULIZER PRN 02/09/2024 02/07/2025 Active documented as of this encounter (statuses as of 04/11/2024) Active Problems Problem Noted Date Diagnosed Date Paroxysmal VT 06/24/2022 ILD (interstitial lung disease) 04/25/2022 COPD, group C, by GOLD 2017 classification 03/30 Overview: Per COPD GOLD Classification Mild emphysema 11/01/2019 Family history of ischemic heart disease 019 Lumbar foraminal stenosis 11/15/2018 HNP (herniated nucleus pulposus), lumbar 019 Lumbar spine pain 10/17/2018 Ventricular ectopy 09/07/2018 Prediabetes 04/30/2018 Overview: Per Prediabetes protocol #1 BPH with obstruction/lower urinary tract symptom s 06/24/2017 Dyslipidemia 06/24/2017 Rheumatoid arthritis involvi ng multiple sites with positive rheumatoid factor 10/07/2015 HTN, goal below 140/90 09/28/2015 Overview: Per HTN Protocol Atrial ectopy 07/09/2015 Encounter for long-term (current) use of 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 08/30 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 HTN, goal below 140/80 08/05/201109/30 Overview: Per HTN Protocol COPD, severity to be determined 12/10/2007 04/14/2011 Overview (05/08/2009): Prior smoker, quit . Obstructive Dz on PFT October 2007. Symptoms improved on Foradil. Much improved on Advair 100-50 COPD, MODERATE 12/10/2007 11/28/2019 Overview (04/14/2011): Per COPD Protocol #24. Prior smoker, quit . Obstructive Dz on PFT October 2007. Symptoms improved on Foradil. Much improved on Advair 100-50 Last PFT - 2007-11-06 Major depressive disorder Overview (02/07/2017): ICD-10 update of inactive term Hyperlipidemia 06/24/2017 E.D. 06/24/2017 Esophagitis 06/24/2017 Overview (01/16/2017): ICD-10 update of inactive term documented as of this encounter (statuses as of 04/11/2024) Immunizations Name Administration Dates Next Due COVID-19 mRNA, LNP-s, No Pre serve, 2-Dose Series (Original) 03/06/2021,02/13/2021 HEP A - Hepatitis A (Adult > 18 yrs) 12/06/1999, 05/31/1999 PPD 01/21/2013 Pneumococcal Conjugate Vacc, 13 Valent (Prevnar) 07/10/2015 Pneumococcal Polysaccharide PPV23 (Pneumovax) 11/03/2017,03/02/2012 Season Influenza, Quad, PF, Adjuvanted, 65+ Yrs, IM (FLUAD) 01/31/2020 Seasonal Influenza Vac., MDV , IM, 0.5 mL (Fluzone) 03/07/2014,01/04/2013,03/02/2012 Seasonal Influenza, High Dos e, Trivalent, PF, IM (Fluzone HD) 01/26/2024 Seasonal Influenza, PF, 6 M & above, IM , (FluLaval or Fluzone) 02/23/2018,03/03/2017 Seasonal Influenza, Quadriva lent Hd (Fluzone Hd) 01/20/2023,12/17/2021,03/12/2021 Seasonal Influenza, Quadriva lent, No Preserve, IM 02/05/2016,02/13/2015 02/04/2017 Seasonal Influenza, Trivalen t, Adjuvanted, 65+ YRS, PF, (Fluad) 02/01/2019 TDAP (age 10 and older)(Boostrix) 11/03/2017 TDAP, Age 7 and older, IM (Adacel) 11/02/2007 documented as of this encounter Social History Tobacco Use Types Packs/Day Years Used Date Smoking Tobacco: Former Cigarettes 2 26 0 10/14/1972 - 10/14/1998 Cigars Smokeless Tobacco: Current Chew Comments:Pt quit smoking in 1996 - 2 +PPD in past. Still chews tobacco smoked- 3/4 can per day Alcohol Use Standard Drinks/Week Comments Yes 3 (1 standard drink = 0.6 oz pur e alcohol) weekend PHQ-2 Answer Date Recorded PHQ Adult Total Score 0 04/28/2023 Hunger Vital Sign Answer Date Recorded Within the past 12 months, y ou worried that your food would run out before you got the money to buy more. Never true 04/28/19 24 Within the past 12 months, t he food you bought just didn't last and you didn't have money to get more. Never true 04/28/2023 Childcare Answer Date Recorded Do you feel overwhelmed with taking care of a child, family member or friend? No 04/28/2023 Does your family need help f inding childcare? (Household - for ages 0-17 years) Not on file 04/28/2023 Clothing Answer Date Recorded Have you been unable to get clothing when it was really needed? No 04/28/2023 Is your family able to get c lothes or diapers when needed? (Household - for ages 0-17 years) Not on file 04/28/2023 Personal Safety Answer Date Recorded Do you feel unsafe or have concerns for your saf ety? No 04/28/2023 Do you have concerns for you r family's safety? (Household - for ages 0-17 years) Not on file 04/28/2023 Utilities Answer Date Recorded Do you have trouble paying y our heating, water, or electric bill? No 04/28/2023 Is your family able to pay t he heat, water, or electric bill? (Household - for ages 0-17 years) Not on file 04/28/2023 Does your family have access to good internet? (Household - for ages 0-17 years) Not on file 04/28/2023 Employment Status Answer Date Recorded Are you unemployed or without regular income? No 04/28/2023 Does the household have a re lar source of income? (Household - for ages 0-17 years) Not on file 04/28/2023 Social Connections Answer Date Recorded How often do you feel lonely or isolated from th ose around you? Never 04/28/2023 Financial Resource Strain Answer Date R ecorded Do you have any trouble payi ng for your medications, or do you think you might in the future? No 04/28/2023 Does your family have troubl e paying for medicine? (Household - for ages 0-17 years) Not on file 04/28/2023 Transportation Needs Answer Date Record ed READ ONLY Do you have troubl e getting a ride to medical visits or work? Never True 04/28/2023 Does your family have a hard time getting a ride to doctors visits? (Household - for ages 0-17 years) Not on file 04/28/2023 Has lack of transportation k ept you from medical appointments, meetings, work, or from getting things needed for daily living? Check all that apply. (Adult - for ages 18 years and over) Not on file 04/28/2023 Do you (or your family) have trouble finding or paying for a ride (transportation)? (Household - for ages 0-17 years) Not on file 04/28/2023 Housing Stability Answer Date Recorded Do you currently live in a s helter or have no steady place to sleep at night? No 04/28/2023 READ ONLY Do you think you a re at risk of becoming homeless? No 04/28/2023 Does your family worry about paying for your home or becoming homeless? (Household - for ages 0-17 years) Not on file 0 04/28/2023 Are you homeless or worried that you might be in the future? (Adult - for ages 18 years and over) Not on file Are you (or your family) teja eless or worried that you might be in the future? (Household - for ages 0-17 years) Not on file Food Insecurity Answer Date Recorded Do you need food for this week? No 04/28/2023 Are you able to get enough f ood for your family? (Household - for ages 0-17 years) Not on file 04/28/2023 Does your family need food t his week? (Household - for ages 0-17 years) Not on file 04/28/2023 Do you always have enough fo od for your family? 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 Not on file Not on file documented as of this encounter Last Filed Vital Signs Vital Sign Reading Time Taken Comments Blood Pressure - - Pulse - - Temperature 36.5 C (97.7 F) 04/01/2024 7:37 AM ES T Respiratory Rate - - Oxygen Saturation - - Inhaled Oxygen Concentration - - Weight - - Height - - Body Mass Index - - documented in this encounter Progress Notes * Mary Jo Quezada MD - 04/01/2024 7:45 AM EST [facility] Mohs Surgery Note (See separate transcribed operative note for further detail) History: Antonio Burt is a 73 year old patient seen for evaluation and management of the following lesion: A. Skin, right vertex scalp, shave: Invasive well-differentiated squamous cell carcinoma Other adjacent/nearby lesions noted on exam today. Patient problem list reviewed. Patient medication/allergy lists reviewed. Examination: Antonio Burt is alert, oriented and appears well and in no distress. The patient's skin is remarkable for: right vertex scalp: 2.0 x 1.1 cm pink scar/pink plaque right posterior scalp: 2.0 x 1.1 cm pink plaque Right vertex scalp, anterior: 2.1 cm x 1.5 cm pink scaly plaque Impression/Plan: well differentiated squamous cell carcinoma - right vertex scalp MMS Standard Mohs micrographic technique was utilized to treat this tumor. Microscopic examination of the specimen allowed the Mohs surgeon, whose dual role is to function as both surgeon and pathologist, to precisely identify the location of any remaining tumor or ascertain that the tissue margins were free of tumor. This process of excision of remaining tumor, mapping, and histologic exam was repeated until the tumor was excised completely. Patient identified, procedure verified, site identified and verified with the patient. Time out completed. Surgical removal of the lesion discussed with the patient (risks and benefits, including possibility of scarring, infection, bleeding, recurrence or potential for further treatment). I have specifically identified the site with the patient. I have discussed the fact that the patient will have a scar after the procedure regardless of granulation or repair with sutures. I have discussed that the repair options can range from granulation in some cases to linear or curvilinear closures. There is a risk of injury to nerves causing temporary or permanent numbness. Questions answered and verbal and written consent was obtained. 2 stage(s) Anesthetic: 0.05% lidocaine with 1:100,000 epinephrine. Repair: Primary Intermediate layered repair (see separate operative report for details) Absorbable sutures 2. Favor non-melanoma skin cancer (basal cell carcinoma vs squamous cell carcinoma) - right posterior scalp - lesion biopsied today, read in Mohs lab on frozen sections, diagnosed as nodular basal cell carcinoma, and subsequently treated with Mohs micrographic surgery Shave Biopsy of the lesion noted above to establish and confirm diagnosis. The procedure, risks, benefits, alternatives and expected outcomes were discussed with the patient and consent was obtained.Time out called. Patient identified, procedure verified, site identified and verified. Patient and staff present in agreement. Area prepped with alcohol and anesthetized with 0.5% lidocaine with epinephrine at 1:200,000 concentration. Biopsy of lesion performed. 20% AlCl and bandaging applied. Specimen sent to Mohs lab for frozen sections. Specimen # [id number] BIOPSY NUMBER/TYPE/SITE: [id number], shave biopsy, right posterior scalp . GROSS DESCRIPTION OF SPECIMEN: Received is a shaved specimen of tissue labelled corresponding to the site listed. MICROSCOPIC DESCRIPTION OF SPECIMEN: Present in the dermis are nodular aggregates of basaloid cellswith peripheral palisading. MICROSCOPIC DIAGNOSIS: Nodular basal cell carcinoma Basal cell carcinoma,right posterior scalp MMS Standard Mohs micrographic technique was utilized to treat this tumor. Microscopic examination of the specimen allowed the Mohs surgeon, whose dual role is to function as both surgeon and pathologist, to precisely identify the location of any remaining tumor or ascertain that the tissue margins were free of tumor. This process of excision of remaining tumor, mapping, and histologic exam was repeated until the tumor was excised completely. Patient identified, procedure verified, site identified and verified with the patient. Time out completed. Surgical removal of the lesion discussed with the patient (risks and benefits, including possibility of scarring, infection, recurrence or potential for further treatment). I have specifically identified the site with the patient. I have discussed the fact that the patient will have a scar after the procedure regardless of granulation or repair with sutures. I have discussed that the repair options can range from granulation in some cases to linear or curvilinear closures. There is a risk of injury to nerves causing temporary or permanent numbness. Questions answered and verbal and written consent was obtained. 3 stage(s) Anesthetic: 0.05% lidocaine with 1:100,000 epinephrine. Repair: Primary Intermediate layered repair (Incorporated into adjacent repair) (see separate operative report for details) Absorbable sutures 3. DDx includes actinic keratosis vs non-melanoma skin cancer, right vertex scalp, anterior - lesion biopsied today, read in Mohs lab on frozen sections, diagnosed as actinic keratosis, and subsequently treated with curettage Shave Biopsy of the lesion noted above to establish and confirm diagnosis. The procedure, risks, benefits, alternatives and expected outcomes were discussed with the patient and consent was obtained.Time out called. Patient identified, procedure verified, site identified and verified. Patient and staff present in agreement. Area prepped with alcohol and anesthetized with 0.5% lidocaine with epinephrine at 1:200,000 concentration. Biopsy of lesion performed. 20% AlCl and bandaging applied. Specimen sent to Mohs lab for frozen sections. Specimen # [id number] BIOPSY NUMBER/TYPE/SITE: [id number] shave biopsy, right vertex scalp, anterior. GROSS DESCRIPTION OF SPECIMEN: Received is a shaved specimen of tissue labelled corresponding to the site listed. MICROSCOPIC DESCRIPTION OF SPECIMEN: Present within the epidermis of this specimen are foci of squamous atypia. These changes do not extend into the dermis in the sections examined. MICROSCOPIC DIAGNOSIS: Actinic keratosis Curettage of the lesion . The procedure, risks, benefits, alternatives and expected outcomes were discussed with the patient and consent was obtained. Patient identified, procedure verified, site identified and verified. Confirmed immediately prior to procedure. Area prepped with alcohol and anesthetized using 0.5% lidocaine with epinephrine at 1:200,000 concentration. Curettage performed for cure. 20% AlCl and bandaging applied. Patient instructed in routine post-op care. Size of lesion: 2.1 cm Size of wound after curettage: 2.5 cm Wound care was discussed verbally, demonstrated and printed wound instructions given as well as wound care supplies. Patient instructed to call with questions or concerns. Personal contact information provided. Follow-up: 4 weeks Mary Jo Quezada MD Associate, Mohs Micrographic Surgery & Dermatologic Surgery 04/01/24 documented in this encounter Nursing Notes * Anika Prado LPN - 04/01/2024 7:38 AM EST Chief Complaint Patient presents with Mohs Surgery Pt presents today for Mohs surgery on R vertex scalp Referral Doctor: Damien Hypertension History: No Diabetes History: Yes, refer to medication information for treatment. Thyroid History: No Bleeding Tendency: No Artificial Valve or Joint: no Pacemaker: no Defibrillator: no Hepatitis/HIV Exposure: No Smoking: no Consent signed yes documented in this encounter Plan of Treatment Upcoming Encounters Date Type Department Care Team (Late st Contact Info) Description 04/26/2024 3:15 PM EST Office [place] [address] Mary Jo Quezada MD [address] [place] [address] 05/24/2024 3:40 PM EST Immunization/Injectio n Anc[address] [place] [address] [place] [address] [place], Nurse [facility] [address] [place] [address] 07/05/2024 11:00 AM EDT Office Visit Dermatology, [facility] [address] [place] [address] Kitty Cardona PA-C [address] [place] [address] 08/02/2024 9:30 AM EDT Office Visit Cardiology, [facility] [address] [facility] [place] [address] Obdulio Perez PA-C [address] [facility] [place] [address] 08/30/2024 1:15 PM EDT Appointment Radiology, [address] [place] [address] 09/13/2024 1:00 PM EDT Office Visit Urology [facility] [address] [place] [address] Nabil Bennett MD [address] [place] [id number] Scheduled Procedures Name Priority Associated Diagnoses Date/Ti me COLONOSCOPY FLEXIBLE PROXIMA L DIAGNOSTIC Recall History of colonic polyps Health Maintenance Due Date Last Done Comments Cologuard 1994 Sigmoidoscopy 1994 Adult Wellness Visit 11/18/2015 Fecal Occult Blood Test 07/08/2017 07/08/2016 *ADVANCE DIRECTIVE NOT ON FILE 04/07/2020 COVID-19 Vaccine (3 - Pfizer risk series) 04/03/2021 03/06/2021, 02/13/2021 *NEPHROLOGY REFERRAL DUE TO RESISTANT HTN 02/22/2024 Depression Screening 04/28/2024 04/28/2023 HbA1c 07/20/2024 07/21/2023, 040 06/2022, 04/22/2022, Additional history exists GFR 11/20/2024 11/21/2023, 040 08/2023, 04/28/2023, Additional history exists O2 ASSESSMENT COMPLETED IN PAST YEAR FOR COPD 02/18/2025 02/19/2024 Albumin/Creatinine Ratio 04/22/2025 023, 07/10/2020, 05/31/2019 DTap/Tdap Vaccines (3 - Td or Tdap) 11/04/2027 11/03/2017, 11/02/2007 Colonoscopy 02/18/2028 02/17/2023, 06/2022, 08/26/2016, Additional history exists Colorectal Cancer Screening 02/18/2028 Lipid Panel 07/20/2028 07/21/2023, 04/17, 11/14/2022, Additional history exists Pneumococcal Vaccine: 65+ Years Completed 11/03/2017, 07/10/2015, 03/02/2012 Alpha-1 Antitrypsin Completed 09/16/2021 AAA Screening Completed 07/16/2022, 06/17, 07/09/2021, Additional history exists RETIRED - COLONOSCOPY-EVERY 5 YRS AGES 18-100 Discontinued 02/17/2023, 02/17/2023, 08/26/2016, Additional history exists Influenza Vaccine (FLU shot) Completed 01/26/2024, 01/20/2023, 12/17/2021, Additional history exists HPV (Gardasil) Vaccine Aged Out No lo nger eligible based on patient's age to complete this topic Hepatitis B Vaccine Aged Out No longe r eligible based on patient's age to complete this topic MENINGOCOCCAL (MENACTRA/MENVEO) Aged Out No longer eligible based on patient's age to complete this topic documented as of this encounter Medical Devices Not on filedocumented as of this encounter Visit Diagnoses Diagnosis Squamous cell carcinoma of scalp- Primary Squamous cell carcinoma of scalp and skin of neck Basal cell carcinoma (BCC) of parietal region of scalp Actinic keratosis documented in this encounter Advance Directives Documents on File Type Date 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
--- OUTSIDE RECORDS SUMMARY | 2024-05-01 20:20 | External Medical Summary | Summary of Care ---
Author Name Unknown Organization [facility] Address [address] [place] [address] Phone [phone] Care Team Providers Care Automotive Service Professional Name Role Phone Trip Bennett Primary Care Provider [phone] Reason for Visit * Reason Onset Date Comments Medication Administration 04/05/2024 Encounter Details Date Type Department Care Team ([facility] st Contact Info) Description 04/05/2024 3:40 PM EST Nurse Only Rheumatology [facility], [place] [address] [facility] [place] [id number] Apple, Nurse Rheumatology [facility] [address] [place] [address] Medication Administration Allergies Active Allergy Reactions Criticality Noted Date Comments Adhesive Tape Rash 03/04/2016 Povidone Iodine 03/02/2012 rash Latex Other (Please comment) Medium 08/26/2016 Skin irritation documented as of this encounter (statuses as of 04/05/2024) Medications certolizumab pegol (CIMZIA) 2 X 200 [...] positive rheumatoid factor (HCC) 200 mg SC [id number] 10/24/2017 Active certolizumab pegol (CIMZIA) inj 200 mgIndications: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 factor (HCC) 200 mg SC [id number] 10/24/2017 Active Albuterol Sulfate (Proventil) (5 MG/ML) 0.5% *conc* inhalation solution 2.5 mgIndications:COPD (chronic obstructive pulmonary disease) with chronic bronchitis (HCC) 2.5 mg NEBULIZER PRN 02/09/2024 02/07/2025 Active documented as of this encounter (statuses as of 04/05/2024) Active Problems Problem Noted Date Diagnosed Date [...] long-term (current) use of medicat ions 12/05/2014 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 Not on file Not on file documented as of this encounter Progress Notes * Linda Brewster LPN - 04/05/2024 3:55 PM EST .off documented in this encounter Plan of Treatment Upcoming Encounters Date Type Department Care Team (Late st Contact Info) Description 04/26/2024 3:15 PM EST Office Visit [facility] Surgery [place]on[place] [address] [place] [phone] Mary Jo Quezada MD [address] [facility] [address] 05/24/2024 3:40 PM EST Immunization/Injectio n Ancillary [address] [place] [address] Apple, Nurse [place] [address] [address] [place] [address] 07/05/2024 11:00 AM EDT Office Visit Dermatology, [facility] [address] [place] [address] Kitty Cardona PA-C [address] [place] [address] 08/02/2024 9:30 AM EDT Office Visit Cardiology, [facility] [address] [place] [address] Obdulio Perez PA-C [address] [place] [address] 08/30/2024 1:15 PM EDT Appointment Radiology, [address] [place] [address] 09/13/2024 1:00 PM EDT Office Visit Urology [place] [place] [address] [place] [address] Nabil Bennett MD [address] [place] [address] Scheduled Procedures Name Priority Associated Diagnoses Date/Ti [...] Depression Screening 04/28/2024 04/28/2023 HbA1c 07/20/2024 07/21/2023, 04/0 06/2022, 04/22/2022, Additional history exists GFR 11/20/2024 11/21/2023, 04/0 08/2023, 04/28/2023, Additional history exists O2 ASSESSMENT [...] as of this encounter Visit Diagnoses Diagnosis Rheumatoid arthritis of other site with positive rheumatoid factor (HCC) documented in this encounter Administered Medications Active Administered Medications - up to 3 most recent administrations Medication Order MAR Action Action Date Dose Rate Site certolizumab pegol (CIMZIA) inj 200 mg 200 mg, Subcutaneous, [id number], First dose on Mon10/24/17 at 1245, Until Discontinued, Allow syringe to come to room temperature prior to administrationIndication s:Rheumatoid arthritis involving multiple sites with positive rheumatoid factor (HCC) Given 04/05/2024 3:54 PM EST 200 mg Thigh Right Lateral Given 03/08/2024 3:36 PM EST 200 mg Th igh Right Given 02/09/2024 3:55 PM EDT 200 mg Th igh Right Lateral certolizumab pegol (CIMZIA) inj 200 mg 200 mg, Subcutaneous, [id number], First dose on Mon10/24/17 at 1245, Until Discontinued, Allow syringe to come to room temperature prior to administrationIndications:Rheu matoid arthritis involving multiple sites with positive rheumatoid factor (HCC) Given 04/05/2024 3:53 PM EST 200 mg Thigh Left Lateral Given 03/08/2024 3:35 PM EST 200 mg Th igh Left Given 02/09/2024 3:54 PM EDT 200 mg Th igh Left Lateral documented in this encounter Advance Directives Documents on File Type Date Recorded Patient Transportation Solutions Manager Expl anation Power of Computer Engineering Professor 09/17/2021 POWER OF A TTORNEY - POWER OF CARTRIDGE MAKER 10-25-21 Care Teams Automotive Service Professional Relationship Specialty Start Date End Date Trip Bennett CRNP [address] [place] [phone] PCP - General Nurse Practitioner 04/28/23 documented as of this encounter
--- OUTSIDE RECORDS SUMMARY | 2024-05-01 20:20 | External Medical Summary | Continuity of Care Document ---
Author Name Unknown Organization [address] Address [address] [place], [place] [id number] Care Team Providers Care Rn Mds Coordinator Name Role Phone Narcisa Sunshine Primary Care Physician [phone] Encounter [facility] [id number] Date(s): 04/11/24 - 04/11/[address] [address] [phone] Encounter Diagnosis Mild emphysema(Discharge Diagnosis) - 04/11/24 Atrial ectopy(Discharge Diagnosis) - 04/11/24 Paroxysmal VT(Discharge Diagnosis) - 04/11/24 Family history of ischemic heart disease(Discharge Diagnosis) - 04/11/24 Pre-op exam(Discharge Diagnosis) - 04/11/24 HTN, goal below 140/90(Discharge Diagnosis) - 04/11/24 ILD (interstitial lung disease)(Discharge Diagnosis) - 04/11/24 Ventricular ectopy(Discharge Diagnosis) - 04/11/24 Rheumatoid arthritis(Discharge Diagnosis) - 04/11/24 Dyslipidemia, goal LDL below 70(Discharge Diagnosis) - 04/11/24 Prediabetes(Discharge Diagnosis) - 04/11/24 COPD, group C, by GOLD 2017 classification(Discharge Diagnosis) - 04/11/24 BPH with obstruction/lower urinary tract symptoms(Discharge Diagnosis) - 04/11/24 HNP (herniated nucleus pulposus), lumbar(Discharge Diagnosis) - 04/11/24 Lumbar foraminal stenosis(Discharge Diagnosis) - 04/11/24 [facility] current use of systemic steroids(Discharge Diagnosis) - 04/11/24 Body mass index [BMI] 29.0-29.9, adult(Discharge Diagnosis) - 04/11/24 Squamous cell skin cancer(Discharge Diagnosis) - 04/11/24 Chronic diastolic heart failure(Discharge Diagnosis) - 04/11/24 Discharge Disposition: Home or Self Care Attending Physician: DO Sunshine Allison B Allergies, Adverse Reactions, Alerts Substance Criticality Severity Reaction Reaction Severity Status Betadine rash Active Tape 1 rash Active Latex rash Active 1Adhesive tape Assessment and Plan Extracted from: Title:Office Visit Note Author:DO Sunshine Allis on B Date:04/11/24 1.Pre-op exam Currently, patient is moderate risk for the proposedprocedure due to hisCAD, CHF, COPD/ILD, and rheumatoid arthritis, but waiting on preop blood work/testing to review and make final addendum. He has been cleared by pulmonary and cardiology. He denies any new symptoms today. He has a follow-up with dermatology on April 26 to assess his healing scalp wound and if cleared will be releasedfor surgery. He is to hold his Cimziain April and to hold his methotrexate the week of surgery. 2.Dyslipidemia, goal LDL below 70 Continue Crestor. Lipid panel pending. 3.Prediabetes Hemoglobin A1c pending. 4.Mild emphysema Stable. 5.COPD, group C, by GOLD 2017 classification Stable. Continue inhaler. Continue to follow-up with pulmonary. 6.ILD (interstitial lung disease) Stable. Continue inhaler. Continue to follow with pulmonary. 7.Atrial ectopy Stable. Continue Cardizem. 8.HTN, goal below 140/90 Blood pressure at goal. 9.Ventricular ectopy Stable. Patient is asymptomatic. 10.Paroxysmal VT Stable. Patient is asymptomatic. Refills ofLasix sent. 11.BPH with obstruction/lower urinary tract symptoms Continue to follow with urology. PSA was stable inApril. Stable. Continue to follow-up with rheumatology. ContinueCimzia, but this is currently on hold for the month of April.Refills of finasteride and Flomax sent. 12.HNP (herniated nucleus pulposus), lumbar Stable 13.Lumbar foraminal stenosis Stable. 14.Rheumatoid arthritis As he is having surgery. He isto hold his methotrexate the week of surgery. 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 Continue to 16.Family history of ischemic heart disease Stable. Continue to follow with cardiology. Continue current medications. 17.Body mass index [BMI] 29.0-29.9, adult Continue diet and exercise. 18.Squamous cell skin cancer Continueto follow-up with dermatology. [facility] surgical site. 19.Chronic diastolic heart failure Compensated. Continue Lasix. BMP pending. Will obtain paperwork/pre-op blood work. Patient currently moderate risk at 6.6% for proposed shoulder surgery and addendum will be placed once pre-op blood work reviewed. Immunizations Given and Recorded Vaccine Date Status Refusal Reason influenza virus vaccine, inactivated 01/26/24 Terry rded SARS-CoV-2 (COVID-19) mRNA BNT-162b2 vax 03/06/21 Recorded SARS-CoV-2 (COVID-19) mRNA BNT-162b2 vax 02/13/21 Recorded tetanus/diphtheria/pertuss, acel (Tdap) 11/03/17 R ecorded tetanus/diphtheria/pertuss, acel (Tdap) 11/02/07 R ecorded pneumococcal 23-valent vaccine 11/03/17 Recorded pneumococcal 23-valent vaccine 03/02/12 Recorded pneumococcal 13-valent vaccine 07/10/15 Recorded hepatitis A adult vaccine 12/06/99 Recorded hepatitis A adult vaccine 05/31/99 Recorded Medications Albuterol (Eqv-Ventolin HFA) 90 mcg/inh inhalation aerosol Start: 04/11/24 8:23:00 AM EST, 18 g, 0 Refill(s) Start Date: 04/11/24 Status: Ordered albuterol 0.083% for nebulization Start: 04/11/24 9:22:00 AM EST, 3 mL, inhaled, q6h, Disp# 100 each, Refills: 1, PRN: as needed for wheezing, Pharmacy: [id number] Start Date: 04/11/24 Stop Date: 08/09/24 Status: Ordered Cimzia Prefilled Syringe 200 mg/mL SubQ kit Start: 04/11/24 8:27:00 AM EST, as directed every 4 weeks Start Date: 04/11/24 Status: Ordered DilTIAZem (Eqv-Cardizem CD) 180 mg/24 hours oral capsule, extended release Start: 04/11/24 8:23:00 AM EST, 1 cap, PO, Daily, 90 each, 0 Refill(s) Start Date: 04/11/24 Status: Ordered ezetimibe 10 mg oral tablet Start: 04/11/24 8:24:00 AM EST, 1 tab, PO, Daily, 90 each, 0 Refill(s) Start Date: 04/11/24 Status: Ordered finasteride 5 mg oral tablet Start: 04/11/24 9:20:00 AM EST, 1 tab, PO, Daily, Disp# 90 tab, Refills: 3, 90 each, 0 Refill(s), Pharmacy: [facility] Start Date: 04/11/24 Stop Date: 04/06/25 Status: Ordered Florastor 250 mg oral capsule Start: 04/11/24 8:26:00 AM EST, 1 cap, PO, Daily Start Date: 04/11/24 Status: Ordered fluticasone 50 mcg/inh nasal spray Start: 04/11/24 8:24:00 AM EST, 16 g, 0 Refill(s) Start Date: 04/11/24 Status: Ordered folic acid 1 mg oral tablet Start: 04/11/24 9:20:00 AM EST, 1 tab, PO, Daily, Disp# 90 tab, Refills: 3, 90 each, 0 Refill(s), Pharmacy: [facility] Start Date: 04/11/24 Stop Date: 04/06/25 Status: Ordered furosemide 20 mg oral tablet Start: 04/11/24 9:20:00 AM EST, 1 tab, PO, Daily, Disp# 90 tab, Refills: 3, 31 each, 0 Refill(s), Pharmacy: [facility] Start Date: 04/11/24 Stop Date: 04/06/25 Status: Ordered losartan 50 mg oral tablet Start: 04/11/24 8:24:00 AM EST, 1 tab, PO, Daily, 90 each, 0 Refill(s) Start Date: 04/11/24 Status: Ordered magnesium amino acids chelate 100 mg oral tablet Start: 04/11/24 8:26:00 AM EST, 2 tab, PO, Daily Start Date: 04/11/24 Status: Ordered methotrexate 25 mg/mL injectable solution Start: 04/11/24 8:24:00 AM EST, 10 mL, 0 Refill(s) Inject 20mg (0.8mL) under the skin once a week Start Date: 04/11/24 Status: Ordered multivitamin Start: 04/11/24 8:25:00 AM EST, 1 tab, PO, Daily Start Date: 04/11/24 Status: Ordered predniSONE 5 mg oral tablet Start: 04/11/24 8:24:00 AM EST, 1 tab, PO, Daily, 90 each, 0 Refill(s) Start Date: 04/11/24 Status: Ordered rosuvastatin 40 mg oral tablet Start: 04/11/24 8:24:00 AM EST, 1 tab, PO, Daily, 90 each, 0 Refill(s) Start Date: 04/11/24 Status: Ordered sildenafil 20 mg oral tablet Start: 04/11/24 8:24:00 AM EST, PO, Disp# 30 tab, Take 4 tablets po as needed one hour prior to sexual activity 0 Refill(s) Start Date: 04/11/24 Status: Ordered tamsulosin 0.4 mg oral capsule Start: 04/11/24 9:20:00 AM EST, 2 cap, PO, Daily, Disp# 180 cap, Refills: 3, 180 each, 0 Refill(s),Pharmacy: [facility] Start Date: 04/11/24 Stop Date: 04/06/25 Status: Ordered Trelegy Ellipta 100 mcg-62.5 mcg-25 mcg/inh inhalation powder Start: 04/11/24 8:24:00 AM EST, 60 each, 0 Refill(s) 1 puff po every morning Start Date: 04/11/24 Status: Ordered Mental Status 04/11/24 Barriers to Learning one year None evide nt Mandatory Health Literacy Documentation Yes Health Literacy Communication Barriers N ever Primary Language Indonesian Problem List Condition Confirmation Course Effective Dates Status H ealth Status Informant BPH with obstruction/lower urinary tract symptoms Confirmed Active Chronic diastolic heart failure Confirmed Active COPD, group C, by GOLD 2017 classification Confirmed Active HNP (herniated nucleus pulposus), lumbar Confirmed Active Atrial ectopy Confirmed Active Family history of ischemic heart disease Confirmed Active Dyslipidemia, goal LDL below 70 Confirmed Active HTN, goal below 140/90 Confirmed Active ILD (interstitial lung disease) Confirmed Active [facility] current use of systemic steroids Confirmed Active Body mass index [BMI] 29.0-29.9, adult Confirmed Active Paroxysmal VT Confirmed Active Prediabetes Confirmed Active Mild emphysema Confirmed Active Rheumatoid arthritis Confirmed Active Squamous cell skin cancer Confirmed Active Lumbar foraminal stenosis Confirmed Active Tobacco user Confirmed Active Ventricular ectopy Confirmed Active Diagnosis Diagnosis Type Effective Dates Health Status Clinical Service Informant Prediabetes Discharge Diagnosis 04/11/24 Non-Specified COPD, group C, by GOLD 2017 classification Discharge Diagnosis 04/11/24 Non-Specified ILD (interstitial lung disease) Discharge Diagnosis 04/11/24 Non-Specified Atrial ectopy Discharge Diagnosis 04/11/24 Non-Specified 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 Discharge Diagnosis 04/11/24 Non-Specified Pre-op exam Discharge Diagnosis 04/11/24 Non-Specified Chronic diastolic heart failure Discharge Diagnosis 04/11/24 Non-Specified Dyslipidemia, goal LDL below 70 Discharge Diagnosis 04/11/24 Non-Specified Mild emphysema Discharge Diagnosis 04/11/24 Non-Specified Paroxysmal VT Discharge Diagnosis 04/11/24 Non-Specified BPH with obstruction/lower urinary tract symptoms Discharge Diagnosis 04/11/24 Non-Specified HNP (herniated nucleus pulposus), lumbar Discharge Diagnosis 04/11/24 Non-Specified Family history of ischemic heart disease Discharge Diagnosis 04/11/24 Non-Specified Squamous cell skin cancer Discharge Diagnosis 04/11/24 Non-Specified Body mass index [BMI] 29.0-29.9, adult Discharge Diagnosis 04/11/24 Non-Specified HTN, goal below 140/90 Discharge Diagnosis 04/11/24 Non-Specified Ventricular ectopy Discharge Diagnosis 04/11/24 Non-Specified Lumbar foraminal stenosis Discharge Diagnosis 04/11/24 Non-Specified Rheumatoid arthritis Discharge Diagnosis 04/11/24 Non-Specified Procedures Procedure Date Related Diagnosis Body Site Status Colonoscopy 1 02/17/23 Completed EGD - esophagogastroduodenoscopy 2 10/14/16 Completed Colonoscopy 3 08/26/16 Completed Clavicle 4 Completed 1Hemorrhoids/bx show adenomatous polyps 2normal bx 3Adenomatous polyp 4Clavicule FX w/o manipulation Vital Signs Most recent to oldest [Reference Range]: 1 Height 168.0 cm (04/11/24 8:28 AM) Patient Weight 83.2 kg (04/11/24 8:28 AM) Body Mass Index 29.48 kg/m2 (04/11/24 8:28 AM) Temperature [36.5-37.9 DegC] 37.5 DegC (04/11/24 8:28 AM) Heart Rate 74 bpm (04/11/24 8:28 AM) Respiratory Rate 18 br/min (04/11/24 8:28 AM) Blood Pressure 110/64mmHg (04/11/24 8:28 AM) Social History Social History Type Response Tobacco Former smoker, Smoke less tobacco use: Smokeless tobacco user within last 30 days. Smoking Status Former Smoker, quit > 1 yr Sex Male Sex Representation Male (finding) FCM Outpt Note * SunshineDO Allison B: PERFORM Event Display: [facility] Outpt Note Authored Date: [id number] Chief Complaint new patient - pt presents for pre-op appt for surgery LT shoulder 05/01/2024 History of Present Illness Patient is a 73-year-old male presents to the office for new patientvisit and preop clearance. Past medical history, past surgical history, family history reviewed and updated. Patientpast medical history was reviewed. He continues to follow with cardiology for history of paroxysmal VT, ventricular ectopy, and atrialectopy. Goal for LDL is less than 70. He was encouraged to take his Crestor daily. He follows with Dr. Perez and reports that he was cleared for surgery. He reports that he had a normal stress test in the past. He continues to follow with pulmonary. He has been following with COPD with emphysema, chronic rhinitis,RA with positive RF and history of COVID-19 infaction. He is currently onTrelegy and albuterol as needed. He had been initially based on to the max 5 mg 3 times weeklybut he was recommended to stop the medication by cardiology.His CAT scans are being followed bypulmonary. He was recently treatedprednisone and Augmentin for suspected acute exacerbation. Perlast pulmonary note in Februaryhe is cleared from pulmonary perspective. He follows with rheumatology for rheumatoid arthritis. He is currently on Cimzia, methotrexate, and prednisone. He is to get his labs every 3 months and recommendations for the COVID-vaccine. Recommendations were no Cimzia for April. He was told to MTX the week of surgery. He does follow withurology for chronic urinary retention. Hecontinues on finasteride and tamsulosin. PSAs are to bechecked yearly. Renal ultrasound is pending. He follows with dermatology and recently underwent Mohs surgery for squamous cell carcinoma. Patient has a history of GERD and takes Pepcid 20 mg at night. Hyperlipidemia and hypertension have been stable.Last blood work was in November.He is overdue forblood work. Last hemoglobin A1c was 6.3% in July.Last PSA was normal at 0.45 in July. He [facility] and had bloodwork, and does have results. He underwent colonoscopy 02/2023 and is due in 5 years for a polyp. Preoperative evaluation Requested by/Surgeon: _Dr. Gonzalez, 05/01/2023 Planned surgery:intermediate risk (intraperitoneal, intrathoracic, CEA, head/neck, ortho, prostate) reversal leftshoulder Planned anesthesia:general Exercise tolerance:Quantity Bleeding tendency/history: _No bleeding issues, issues with anesthesia. Substance use per social history in EHR: Alcohol- 6 pack/week. Prior response to anesthesia: _Difficulty waking up. Revised Cardiac Risk Index: Score [_2] [_] High Risk Surgery [X_] Ischemic Heart Disease [X] History of CHF [_] History of cerebrovascular disease [_] Insulin therapy for DM [_] Pre-op Cr >2 Review of Systems Constitutional: No fever, No chills, No fatigue._ Respiratory: No shortness of breath, No cough, No wheezing. _ Cardiovascular: no lightheadedness/presyncope, No chest pain, No palpitations._ Gastrointestinal: No nausea, No vomiting, No diarrhea, No constipation, No heartburn, No abdominal pain._ Musculoskeletal: No back pain, No neck pain, No joint pain, No muscle pain, No decreased range ofmotion, No trauma._ Skin: No rash, No pruritus, No breakdown._ Neurologic:No abnormal balance, No numbness, No tingling, No headache._ Physical Exam Vitals & Measurements T:37.5C HR:74(Monitored) RR:18 BP:110/64 SpO2:93% HT:168.0cm WT:83.2kg WT:83.200kg(Dosing) BMI:29.48 PHQ2 Data(Data Documented on:04/11/2024 08:28) Emotional health assessment NEGATIVE General: _Alert and oriented, No acute distress HEENT: _ Normocephalic, TM clear, Nl gross hearing, moist oral mucosa _ Cardiovascular: _Normal rate, Regular rhythm, No murmur, No gallop. Respiratory: _Lungs are clear to auscultation, Respirations are non-labored, Breath sounds are equal Gastrointestinal: _Soft, Non-tender, Non-distended, Normal bowel sounds. Musculoskeletal: _Normal range of motion,normal strength. Neurologic:Normal sensory, Normal motor function, CN II-XII grossly intact. Integumentary: _Warm, Dry, [place]. Psych: Mood-affect congruence. Reports no SI/HI. Speech is of normal pace and content Assessment/Plan 1.Pre-op exam Currently, patient is moderate risk for the proposedprocedure due to hisCAD, CHF, COPD/ILD, and rheumatoid arthritis, but waiting on preop blood work/testing to review and make final addendum. He has been cleared by pulmonary and cardiology. He denies any new symptoms today. He has a follow- up with dermatology on April 26 to assess his healing scalp wound and if cleared will be releasedfor surgery. He is to hold his Cimziain April and to hold his methotrexate the week of surgery. 2.Dyslipidemia, goal LDL below 70 Continue Crestor. Lipid panel pending. 3.Prediabetes Hemoglobin A1c pending. 4.Mild emphysema Stable. 5.COPD, group C, by GOLD 2017 classification Stable. Continue inhaler. Continue to follow-up with pulmonary. 6.ILD (interstitial lung disease) Stable. Continue inhaler. Continue to follow with pulmonary. 7.Atrial ectopy Stable. Continue Cardizem. 8.HTN, goal below 140/90 Blood pressure at goal. 9.Ventricular ectopy Stable. Patient is asymptomatic. 10.Paroxysmal VT Stable. Patient is asymptomatic. Refills ofLasix sent. 11.BPH with obstruction/lower urinary tract symptoms Continue to follow with urology. PSA was stable inApril. Stable. Continue to follow-up with rheumatology. ContinueCimzia, but this is currently on hold for the month of April.Refills of finasteride and Flomax sent. 12.HNP (herniated nucleus pulposus), lumbar Stable 13.Lumbar foraminal stenosis Stable. 14.Rheumatoid arthritis As he is having surgery. He isto hold his methotrexate the week of surgery. 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 Continue to 16.Family history of ischemic heart disease Stable. Continue to follow with cardiology. Continue current medications. 17.Body mass index [BMI] 29.0-29.9, adult Continue diet and exercise. 18.Squamous cell skin cancer Continueto follow-up with dermatology. [facility] surgical site. 19.Chronic diastolic heart failure Compensated. Continue Lasix. BMP pending. Will obtain paperwork/pre-op blood work. Patient currently moderate risk at 6.6% for proposed shoulder surgery and addendum will be placed once pre-op blood work reviewed. Problem List/Past Medical History Ongoing Atrial ectopy Body mass index [BMI] 29.0-29.9, adult BPH with obstruction/lower urinary tract symptoms Chronic diastolic heart failure COPD, group C, by GOLD 2017 classification Dyslipidemia, goal LDL below 70 Family history of ischemic heart disease HNP (herniated nucleus pulposus), lumbar HTN, goal below 140/90 ILD (interstitial lung disease) 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 Lumbar foraminal stenosis Mild emphysema Paroxysmal VT Prediabetes Rheumatoid arthritis Squamous cell skin cancer Tobacco user Ventricular ectopy Procedure/Surgical History Colonoscopy| Service Date: 02/17/2023EGD - esophagogastroduodenoscopy| Service Date: 10/14/2016Colonoscopy| Service Date: 08/26/2016Clavicle Medications albuterol(Albuterol (Eqv-Ventolin HFA) 90 mcg/inh inhalation aerosol) albuterol(albuterol 0.083% for nebulization), 2.5 mg= 3 mL, inhaled, q6h, PRN, 1 refills certolizumab(Cimzia Prefilled Syringe 200 mg/mL SubQ kit) dilTIAZem(DilTIAZem (Eqv-Cardizem CD) 180 mg/24 hours oral capsule, extended release) ezetimibe(ezetimibe 10 mg oral tablet) finasteride(finasteride 5 mg oral tablet), 5 mg= 1 tab, PO, Daily, 3 refills fluticasone nasal(fluticasone 50 mcg/inh nasal spray) fluticasone/umeclidinium/vilanterol(Trelegy Ellipta 100 mcg-62.5 mcg-25 mcg/inh inhalation powder) folic acid(folic acid 1 mg oral tablet), 1 mg= 1 tab, PO, Daily, 3 refills furosemide(furosemide 20 mg oral tablet), 20 mg= 1 tab, PO, Daily, 3 refills losartan(losartan 50 mg oral tablet) magnesium amino acids chelate(magnesium amino acids chelate 100 mg oral tablet), 200 mg= 2 tab, PO,Daily methotrexate(methotrexate 25 mg/mL injectable solution) multivitamin, 1 tab, PO, Daily predniSONE(predniSONE 5 mg oral tablet) rosuvastatin(rosuvastatin 40 mg oral tablet) saccharomyces boulardii lyo(Florastor 250 mg oral capsule) sildenafil(sildenafil 20 mg oral tablet) tamsulosin(tamsulosin 0.4 mg oral capsule), 0.8 mg= 2 cap, PO, Daily, 3 refills Allergies Betadinerash Latexrash Taperash Social History Smoking Status Former Smoker, quit > 1 yr Employment/School Status:Retired Home/Environment Lives with:Spouse Sexual Sexually active:Yes Self described orientation:Straight or heterosexual Tobacco Use:Former smoker Smokeless tobacco use:Smokeless tobacco user within last 30 days Family History Arthritis: Mother. Cancer: Brother. Heart attack: Father. Heart disease: Mother. Health Status Family Member(s) Immunizations Vaccine Date Status influenza virus vaccine, inactivated 01/26/2024 Recorded SARS-CoV-2 (COVID-19) mRNA BNT-162b2 vax 03/06/2021 Recorded SARS-CoV-2 (COVID-19) mRNA BNT-162b2 vax 02/13/2021 Recorded tetanus/diphtheria/pertuss, acel (Tdap) 11/03/2017 Recorded pneumococcal 23-valent vaccine 11/03/2017 Recorded pneumococcal 13-valent vaccine 07/10/2015 Recorded pneumococcal 23-valent vaccine 03/02/2012 Recorded tetanus/diphtheria/pertuss, acel (Tdap) 11/02/2007 Recorded hepatitis A adult vaccine 12/06/1999 Recorded hepatitis A adult vaccine 05/31/1999 Recorded Recommendations Health Maintenance Pending(in the next year) Due Medicare Annual Wellness Visit due04/11/24and every 1year Due In Future Adult Influenza Vaccine not due until10/14/24and every 1year Satisfied(in the past 1 year) Satisfied Adult Influenza Vaccine on01/26/24.Satisfied by LUIS Velazquez Natalie Electronic Signature on File Electronically Reviewed/Signed by: Narcisa Sunshine DO Author Signature Dt/Tm:04/11/2024 09:42 AM Department of Family Medicine [facility] Patient Care team information Care Team Personnel Name: DO Sunshine Allison B Position: Physician - Family Med Member Role: Primary Care Provider Address: [address] [place] [address], [facility] [place] Care Team Related Persons Name: AILYN VERGARA"
--- OUTSIDE RECORDS SUMMARY | 2024-05-01 20:20 | External Medical Summary | Summary of Care ---
Author Name Unknown Organization [facility] Address [address] [place] [address] Phone [phone] Care Team Providers Care Street Light Mechanic Name Role Phone Trip Bennett Primary Care Provider [phone] Reason for Visit * Reason Comments Follow Up S/p Mohs R vertex sc alp 04/01 - purse string, R posterior scalp 04/01 - purse string. Pt states site was healing well until he hit his head this morning. Encounter Details Date Type Department Care Team (Late st Contact Info) Description 04/26/2024 3:15 PM EST Office Visit [facility] [address] [place] [address] Mary Jo Quezada MD [address] [place] [address] Visit for wound check* Allergies Active Allergy Reactions Criticality Noted Date Comments Adhesive Tape Rash 03/04/2016 Povidone Iodine 03/02/2012 rash Latex Other (Please comment) Medium 08/26/2016 Skin irritation documented as of this encounter (statuses as of 04/29/2024) Medications certolizumab pegol (CIMZIA) 2 X 200 [...] positive rheumatoid factor (HCC) 200 mg SC [id number] 10/24/2017 Active certolizumab pegol (CIMZIA) inj 200 mgIndications: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 factor (HCC) 200 mg SC [id number] 10/24/2017 Active Albuterol Sulfate (Proventil) (5 MG/ML) 0.5% *conc* inhalation solution 2.5 mgIndications:COPD (chronic obstructive pulmonary disease) with chronic bronchitis (HCC) 2.5 mg NEBULIZER PRN 02/09/2024 02/07/2025 Active documented as of this encounter (statuses as of 04/29/2024) Active Problems Problem Noted Date Diagnosed Date [...] long-term (current) use of medicat ions 12/05/2014 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 Wound is healing well thus far and patient has no concerns/complaints. EXAM Surgical wound on scalp healing well PLAN -Vinegar soak applied, wound cleaned, vaseline/bandage reapplied -Continue vaseline with or without bandage until completely healed Follow-up: 1 month The patient was encouraged to contact me with any further questions or concerns. Mary Jo Quezada MD Associate, Mohs Micrographic Surgery & Dermatologic Surgery 04/26/24 documented in this encounter Nursing Notes * Ave Leach CMA - 04/26/2024 3:05 PM EST Chief Complaint Patient presents with Follow Up S/p Mohs R vertex scalp 04/01 - purse string, R posterior scalp 04/01 - purse string. Pt states site was healing well until he hit his head this morning. documented in this encounter Plan of Treatment Upcoming Encounters Date Type Department Care Team (Late st Contact Info) Description 05/24/2024 3:40 PM EST Immunization/Injectio n Ancillary [address], [place] [address] [place] [address] [place], Nurse Fp [facility] [address] [facility] [place] [address] 05/28/2024 1:45 PM EST Office Visit [facility] [address] [place] [address] Mary Jo Quezada MD [address] [place] [address] 07/05/2024 11:00 AM EDT Office Visit Dermatology, [facility] [address] [facility] [address] [address] Kitty Cardona PA-C [address] [address] 08/02/2024 9:30 AM EDT Office Visit Cardiology, [facility] [address] [address] Obdulio Perez PA-C [address] [address] 08/30/2024 1:15 PM EDT Appointment Radiology, [facility] [address] [place] [address] 09/13/2024 1:00 PM EDT Office Visit Urology [facility] [address] [address] Nabil Bennett MD [address] [address] Scheduled Procedures Name Priority Associated Diagnoses Date/Ti [...] Depression Screening 04/28/2024 04/28/2023 HbA1c 07/20/2024 07/21/2023, 0 06/2022, 04/22/2022, Additional history exists GFR 11/20/2024 11/21/2023, 04/0 08/2023, 04/28/2023, Additional history exists O2 ASSESSMENT COMPLETED IN PAST YEAR FOR COPD 02/18/2025 02/19/2024 Albumin/Creatinine Ratio 04/22/2025 023, 07/10/2020, 05/31/2019 DTap/Tdap Vaccines (3 - Td or Tdap) 11/04/2027 11/03/2017, 11/02/2007 Colonoscopy 02/18/2028 02/17/2023, 06/2022, 08/26/2016, Additional history exists Colorectal Cancer Screening 02/18/2028 Lipid Panel 07/20/2028 07/21/2023, 04/17, 11/14/2022, Additional history exists Pneumococcal Vaccine: 50+ Years Completed 11/03/2017, 07/10/2015, 03/02/2012 Alpha-1 Antitrypsin Completed 09/16/2021 AAA Screening Completed 07/16/2022, 06/17, 07/09/2021, Additional history exists RETIRED - COLONOSCOPY-EVERY 5 YRS AGES 18-100 Discontinued 02/17/2023, 02/17/2023, 08/26/2016, Additional history exists Influenza Vaccine (FLU shot) Completed 01/26/2024, 01/26/2024, 01/20/2023, Additional history exists HPV (Gardasil) Vaccine Aged [...] as of this encounter Visit Diagnoses Diagnosis Visit for wound check- Primary Encounter for other specified aftercare documented in this encounter Advance Directives Documents on File Type Date Recorded 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
--- OUTSIDE RECORDS SUMMARY | 2024-05-01 20:20 | External Medical Summary | Summary of Care ---
Author Name Unknown Organization [facility] Address [address] [place] [address] Phone [phone] Care Team Providers Care Remediation Bioanalytics Consultant Name Role Phone Trip Bennett Primary Care Provider [phone] Reason for Visit * Reason Comments Mohs Surgery Pt presents today fo r Mohs surgery on R vertex scalp Encounter Details Date Type Department Care Team (Late st Contact Info) Description 04/01/2024 7:45 AM EST Office Visit [facility] [address] [place] [address] Mary Jo Quezada MD [address] [place] [id number] Squamous cell carcinoma of scalp*; Basal cell [...] positive rheumatoid factor (HCC) 200 mg SC [id number] 10/24/2017 Active certolizumab pegol (CIMZIA) inj 200 mgIndications: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 Specimen # [id number] BIOPSY NUMBER/TYPE/SITE: [id number], shave biopsy, right posterior scalp . GROSS [...] frozen sections. Specimen # [id number] BIOPSY NUMBER/TYPE/SITE: [id number] shave biopsy, right vertex scalp, anterior. GROSS [...] 3:15 PM EST [place] [address] Mary Jo Quezada MD [address] [place] [address] 05/24/2024 3:40 PM EST Immunization/Injectio n Ancillary [address], [place] [address] [place] [address] [place], Nurse Fp [address] [place] [address] 07/05/2024 11:00 AM EDT Office Visit Dermatology, [facility] [address] [facility] [address] [place] [address] [address] Kitty Cardona PA-C [address] [address] 08/02/2024 9:30 AM EDT Office Visit Cardiology, [facility] [address] [place] [address] Obdulio Perez PA-C [address] [facility] [place] [address] 08/30/2024 1:15 PM EDT Appointment Radiology, [address] [place] [address] 09/13/2024 1:00 PM EDT Office Visit Urology [facility] [address] [place] [address] [address] Nabil Bennett MD [address] [address] Scheduled Procedures Name Priority Associated Diagnoses Date/Ti [...] Documents on File Type Date Recorded Patient 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
[2024-05-01] MEDS: SENNA 8.6 MG TAB PO SCH (20:23)
[2024-05-01] MEDS: ASPIRIN 81 MG ECTAB PO SCH (20:24)
[2024-05-01] MEDS: DOCUSATE SODIUM 100 MG CAP PO SCH (20:24)
[2024-05-01] MEDS: FINASTERIDE 5 MG TAB PO SCH (20:24)
[2024-05-01] MEDS: TAMSULOSIN HCL 0.4 MG CAP PO SCH (20:24)
[2024-05-01] MEDS: EZETIMIBE 10 MG TAB PO SCH (20:24)
[2024-05-01] MEDS: TRANEXAMIC ACID / 0.7% NACL 1,000 MG/100 ML BAG IV SCH (21:08)
[2024-05-02 07:22] VITALS: BP 126/83; TEMP 98.4
[2024-05-02] MEDS: ALBUT/IPRATROP 3MG/0.5MG NEB 3 ML VIAL NEB SCH (07:24)
[2024-05-02 07:26] VITALS: RESP 18; O2SAT 93
[2024-05-02] MEDS: UMECLIDINIUM/VILANTEROL 62.5/25MCG 7 PUFFS/INHALER INH SCH (07:49)
[2024-05-02] MEDS: FLUTICASONE FUROATE 100MCG 14 PUFFS/INHALER INH SCH (07:49)
[2024-05-02] MEDS: FOLIC ACID 1 MG TAB PO SCH (07:51)
[2024-05-02] MEDS: ROSUVASTATIN CALCIUM 20 MG TAB PO SCH (07:51)
[2024-05-02] MEDS: SACCHAROMYCES BOULARDII 250 MG CAP PO SCH (07:52)
[2024-05-02] MEDS: FUROSEMIDE 20 MG TAB PO SCH (07:52)
[2024-05-02] MEDS: dilTIAZem HCL 180 MG CAPCR PO SCH (07:52)
[2024-05-02] MEDS: MULTIVITAMIN TAB PO SCH (07:52)
[2024-05-02] MEDS: MAGNESIUM OXIDE 400 MG TAB PO SCH (07:52)
[2024-05-02 08:00] LABS: Basophils # (auto) 0.02 K/uL (0.00-0.20); Basophils % (auto) 0.1 %; Hematocrit (blood only) 35.3 % (42.0-52.0); Hemoglobin 11.9 g/dl (14.0-18.0); Immature Granulocytes # (auto) 0.16 K/uL (0.01-0.20); Lymphocytes # (auto) 1.46 K/uL (1.20-3.40); Lymphocytes % (auto) 8.9 %; Mean Corpuscular Hemoglobin 32.5 pg (25.0-34.0); Mean Corpuscular Hgb Conc 33.7 g/dL (32.0-36.0); Mean Corpuscular Volume 96.4 fL (80.0-100.0); Monocytes # (auto) 1.47 K/uL (0.11-0.59); Neutrophils # (auto) 13.31 K/uL (1.40-6.50); Platelet Count 262 K/uL (130-400); RDW Coefficient of Variation 14.2 % (11.5-14.5); RDW Standard Deviation 49.6 fL (36.4-46.3); Red Blood Count 3.66 M/uL (4.70-6.10); White Blood Count 16.42 K/ul (4.8-10.8)
[2024-05-02] MEDS: predniSONE 5 MG TAB PO SCH (08:11)
[2024-05-02 08:16] LABS: Calcium 8.3 mg/dl (8.6-10.3); Creatinine Clr Calc Pharmacy 73.2 ml/min; Potassium 4.3 mmol/L (3.5-5.1)
--- NOTE | 2024-05-02 08:17 | Orthopedic Progress Note ---
Date of Service May 02, 2024 Assessment & Plan (1) Osteoarthritis of left glenohumeral joint: Plan: Chronic left shoulder pain end-stage glenohumeral osteoarthritis with failed rotator cuff repair with recurrent rotator cuff tear. Plan is to proceed with reverse total shoulder arthroplasty. Postop day 1 reverse shoulder replacement. Patient stable to be discharged home today. Patient needs instruction in home exercise program which she will be performed for 2 weeks and then will start formal physical therapy after that. Discussed activity precautions. Follow-up in 2 weeks in the office. (2) Rotator cuff tear, left: Admission and Anticipated Discharge Date Admission Date: May 01, 2024 Subjective Feels well no significant complaints Review of Systems Review of Systems: No chest pain shortness of breath. Physical Exam Musculoskeletal: Motor function hand return. Still has no pain in his shoulder. Minor swelling in the hand not unusual. Good circulation. Results & Data Vital Signs (Past 12 Hours) Vital Signs Temp Pulse Pulse Resp BP Pulse Ox O2 Del Method 05/02/24 07:26 75 18 93 Room Air 05/02/24 07:21 36.9 C 76 16 126/83 94 Room Air 05/02/24 03:29 36.6 C 73 16 119/66 96 Nasal Cannula 05/01/24 23:00 36.6 C 62 16 117/64 95 Nasal Cannula 05/01/24 21:15 36.6 C 69 16 120/66 94 Nasal Cannula O2 Flow Rate 05/02/24 07:26 05/02/24 07:21 05/02/24 03:29 2 05/01/24 23:00 2 05/01/24 21:15 2 Diagnostic Findings Well aligned reverse shoulder replacement radiographically. (2) Rotator cuff tear, left Rotator cuff tear extent: complete Rotator cuff tear trauma status: nontraumatic Qualified Code(s): M75.122 - Complete rotator cuff tear or rupture of left shoulder, not specified as traumatic
[2024-05-02] MEDS: dexAMETHasone 10 MG in SYRINGE 0 ML IV SCH (08:59)
[2024-05-02] MEDS ORDERED: NON-FORMULARY MEDICATION (Multivitamin-Minerals-Lutein [Multivitamin 50 Plus] Tablet) PO SCH (09:00)
[2024-05-02] MEDS ORDERED: NON-FORMULARY MEDICATION (Fluticasone-Umeclidin-Vilanter [Trelegy Ellipta] 100-62.5-25 mcg INH SCH (09:00)
[2024-05-02] MEDS ORDERED: LOSARTAN POTASSIUM 50 MG TAB PO SCH (09:00)
[2024-05-02 10:27] VITALS: PULSE 73
--- NOTE | 2024-05-02 10:27 | Hospitalist Progress Note ---
Date of Service May 02, 2024 Assessment & Plan (1) Rotator cuff tear, left: Plan: s/p left reverse total shoulder with Dr. Gonzalez 05/01. Leukocytosis likely reactive from steroids (2) Chronic obstructive pulmonary disease: Plan: - follows with pulm, on room air. No wheezing on exam. continue home inhalers. (3) Hypertension: Plan: Okay to resume losartan (4) Hyperlipidemia: Plan: - continue Zetia, statin (5) GERD (gastroesophageal reflux disease): (6) BPH (benign prostatic hyperplasia): (7) Rheumatoid arthritis: Plan: - continue with home medications-> methotrexate, prednisone - on Cimzia- did not take in April prior to surgery would recommend holding MTX until healed post-op-can discuss with PCP vs Rheum Plan medically stable, agree with discharge Admission and Anticipated Discharge Date Admission Date: May 01, 2024 Supervising Physician Co-Signing Physician Notes PA Supervision Note: I did not personally see or examine the patient today, but I verified all segovia points of JHONY Jasmine's assessment and plan with the following exceptions/additions: None Subjective patient seen sitting up in the chair, family present at bedside. Reports feeling well and very anxious for discharge but awaiting to be seen by occupational therapy. Feels like his breathing is at baseline denies shortness of breath. Has not passed gas at the time of my eval, but is urinating without issue Review of Systems Review of Systems: All systems reviewed & are unremarkable except as noted in Subjective Physical Exam Physical Exam: General: NAD, VS as above Resp: normal respiratory effort, diminished in the bases CV: RRR, no murmur, Extremities: left arm in sling with ice applied. Able to move fingers distally and good pulses Neuro: A&O x3, Results & Data Results & Data Vital Signs (Past 12 Hours) Vital Signs Temp Pulse Pulse Resp BP Pulse Ox O2 Del Method 05/02/24 07:40 Room Air 05/02/24 07:26 75 18 93 Room Air 05/02/24 07:21 98.4 F 76 16 126/83 94 Room Air 05/02/24 03:29 97.9 F 73 16 119/66 96 Nasal Cannula 05/01/24 23:00 97.9 F 62 16 117/64 95 Nasal Cannula O2 Flow Rate 05/02/24 07:40 05/02/24 07:26 05/02/24 07:21 05/02/24 03:29 2 05/01/24 23:00 2 Laboratory Results CBC and chemistry reviewed PG Care Time/CCT Total # of Minutes Spent Total Time Spent with Patient: Total time spent is greater than 50% in coordination of care (as documented) at patient's floor/unit and/or counseling patient: Coding Level of Care Code 02623 SUB INP/OBS CARE 2/35MIN Diagnoses Nontraumatic complete tear of left rotator cuff M75.122 Rotator cuff tear extent: complete Rotator cuff tear trauma status: nontraumatic Chronic obstructive pulmonary disease J44.9 Hypertension I10 Hyperlipidemia E78.5 GERD (gastroesophageal reflux disease) K21.9 BPH (benign prostatic hyperplasia) N40.0 Rheumatoid arthritis M06.9 (1) Rotator cuff tear, left Rotator cuff tear extent: complete Rotator cuff tear trauma status: nontraumatic Qualified Code(s): M75.122 - Complete rotator cuff tear or rupture of left shoulder, not specified as traumatic
[2024-05-02] MEDS ORDERED: CeleBREX 200 MG CAP PO SCH (21:00)
--- NOTE | 2024-05-03 14:13 | Discharge Summary ---
Date of Service May 03, 2024 Admission HPI Per Admitting Provider 73-year-old male with chronic left shoulder pain. History of prior shoulder arthroscopy. Patient has chronic pain and weakness. Patient denies headaches, sweats, fevers, chills, double vision, blurred vision, sore throat, chest pain, sob at rest but still with activity, n/v/d/c, numbness, tingling, fatigue, urinary symptoms, mood disorders. ROS positive for heart palpitations chronic cough low back pain enlarged prostate. Principal Diagnosis Left shoulder osteoarthritis Discharge Data Allergies Allergy/AdvReac Type Severity Reaction Status Date / Time adhesive Allergy Intermediate Rash, Verified 05/01/24 13:06 itchiness povidone-iodine Allergy Intermediate Rash, Verified 05/01/24 13:06 itchiness Consultations 04/29/24 10:03 Consult Hospitalist Routine Procedures Performed Operation Date: 05/01/24 15:00 Actual Procedures p Left Reverse Total Shoulder Arthroplasty(Left) - Mauri Gonzalez MD Ordered Studies 05/01/24 05:00 US - OR guided needle placemen Routine Hospital Course (1) Osteoarthritis of left glenohumeral joint: Chronic left shoulder pain end-stage glenohumeral osteoarthritis with failed rotator cuff repair with recurrent rotator cuff tear. Plan is to proceed with reverse total shoulder arthroplasty. Postop day 1 reverse shoulder replacement. Patient stable to be discharged home today. Patient needs instruction in home exercise program which she will be performed for 2 weeks and then will start formal physical therapy after that. Discussed activity precautions. Follow-up in 2 weeks in the office. Total Time Total Time Spent Total Time Spent (In Minutes): 20 Discharge Plan Discharge Items Patient Disposition: Home - Self-Care Reason For Visit: Left Shoulder Osteoarthritis Discharge Diagnosis: Left rotator cuff arthropathy Activity: Per Instructions section Non-emergency contact: Surgeon Call non-emergency contact if: your pain is not controlled, your pain is worsening and your temperature is above 101 Follow-up/Referrals: Anamika Beatty CRNP [Primary Care Provider] - Diet: Regular Addtl Attending Provider Instructions: ACTIVITY RECOMMENDATIONS: SELF CARE INSTRUCTIONS AFTER TOTAL SHOULDER ARTHROPLASTY REVERSE A. You may do daily exercises as taught in physical therapy while in hospital. No lifting with the operative arm. B. You are to wear your sling/immobilizer at all times EXCEPT when performing your daily exercises and for hygiene purposes. C. You may perform dry, daily dressing changes. Please keep your incision covered. You may shower 48 hours after surgery. Do not apply soap or any ointment/lotions directly over incision. Do not soak incision in bath tub/swimming pool. D. You may use ice as needed to operative shoulder. E. You may resume previous diet. F. Silverlon: You have a Silverlon dressing on the incision. It will remain in place for 7 days from the day of your surgery. After 7 days, you may remove the dressing, just as you would remove a bandaid. You may shower with the Silverlon dressing in place. However, if you notice any water within the dressing, the dressing should be removed. You may cover the incision with a dry dressing once the silverlon is removed if there is any drainage. SPECIAL CARE INSTRUCTIONS: VERY IMPORTANT TO READ AND REVIEW A. There are a few signs you need to watch for after you are home. Call [facility] at [phone] if you experience any of the followin. Increased severe shoulder pain. Some pain is expected especially when you exercise. 2. Increased swelling in you shoulder or arm; pain or swelling in either upper extremity. 3. Any fluid drainage from the incision. 4. Shortness of breath or chest pain. B. Please call [facility] at [phone] if you have any questions or concerns about your operation or recovery. C. Call your physician if: 1. Temperature is greater than 101 degrees (F). 2. Pain is not relieved by prescribed pain medications. 3. Increase drainage or redness from incision. 4. Unanswered questions or concerns. FOLLOW UP VISIT: Please call [facility] at [phone] to schedule a follow up appointment with Dr. Gonzalez or his PA in 12-14 days from your surgery date. Pending Studies at Discharge: No Stand-Alone Forms: My [employer], Smoking Cessation Medications and DC Order Prescriptions: New celecoxib [Celebrex] 200 mg capsule 200 mg PO Q12H Qty: 60 0RF aspirin 81 mg tablet,delayed release (DR/EC) 81 mg PO BID Qty: 60 0RF cefadroxil 500 mg capsule 500 mg PO Q12H Qty: 28 0RF oxycodone 5 mg tablet 5 mg PO Q4H PRN (Reason: pain) Qty: 20 0RF acetaminophen [Tylenol Extra Strength] 500 mg tablet 1,000 mg PO Q8H Qty: 90 0RF Continued losartan 50 mg Tablet 50 mg PO QAM diltiazem HCl 180 mg Capsule,Extended Release 24 Hr 180 mg PO QAM albuterol sulfate 1.25 mg/3 mL Solution For Nebulization 1.25 mg INHALATION QID PRN (Reason: sob) prednisone 5 mg Tablet 5 mg PO QAM methotrexate sodium 25 mg/mL Solution 20 mg IM WK famotidine 20 mg Tablet 20 mg PO DAILY PRN (Reason: Heartburn) tamsulosin 0.4 mg Capsule 0.8 mg PO HS folic acid 1 mg Tablet 1 mg PO QAM furosemide 20 mg Tablet 20 mg PO QAM albuterol sulfate 90 mcg/actuation Hfa Aerosol Inhaler 1 inh INHALATION QID PRN (Reason: sob) finasteride 5 mg Tablet 5 mg PO HS magnesium 200 mg Tablet 400 mg PO QAM Multivitamin 50 Plus Tablet 1 tab PO QAM ezetimibe 10 mg Tablet 10 mg PO HS rosuvastatin 40 mg Tablet 40 mg PO QAM Saccharomyces boulardii [Florastor] 250 mg Capsule 250 mg PO QAM Trelegy Ellipta 100-62.5-25 mcg Blister With Device 1 inh INHALATION QAM Held Cimzia 400 mg/2 mL (200 mg/mL x 2) Syringe Kit 400 mg SUBCUT Q4WK Hold Instructions: Resume on 05/15/24. Discharge Orders: Discharge Order (Routine); Ordered 05/02/24 Ordered By: Mauri Gonzalez Admission Data Admit Date/Time: 05/01/24 15:19 Attending Provider: Mauri Gonzalez Admit Provider: Mauri Gonzalez Primary Care Provider: Anamika Beatty. Other Providers: Awilda Ludwig Other Interventions: Discharge Summary Assessment (RN) Last Done: 05/02/24 10:27
== END 2024-05-02 12:12 | disposition home or self-care (01) ==
LOC: 3N 12:43 → ASU 12:43